=== PATIENT | female | born 1945 | race American Indian/Alaskan Native ===

== ENCOUNTER 2017-09-09 15:30 | Inpatient (IN) | payer BC, OTHER ==
[2017-08-23 09:56] VITALS: BMI 35.9
[2017-09-09] MEDS ORDERED: Albuterol 0.083% Inhal Sol (2.5 mg/3 mL) UD INH PRN (18:17)
[2017-09-09] MEDS: Oxycodone/Acetaminophen 5/325 mg Tab PO PRN (20:29)
[2017-09-09] MEDS ORDERED: Tuberculin 5 Units/0.1 ml Inj ID ONE (22:00)
[2017-09-10] MEDS: Oxycodone/Acetaminophen 5/325 mg Tab PO PRN ×3 (03:42→17:08)
[2017-09-10] MEDS: Multivitamin With Minerals Tab PO SCH (08:59)
[2017-09-10] MEDS: Enoxaparin 40 mg Syringe SC SCH (09:54)
--- NOTE | 2017-09-10 17:26 | CP.PCM.CON ---
History of Present Illness - History of Present Illness History of Present Illness: Dr Bean PMR consultation on Jo Ann Vanegas, born 1945 who has been admitted to [facility] TCU for sub=acute rehabilitation following a right TKR at [facility]. She is having pain that is not allowing for CPM usage. + constipation as well. Had not been on pain medication prior to the surgery Review of Systems - Constitutional Constitutional: absent: Chills - EENT Eyes: absent: Blurred Vision Ears: absent: Decreased Hearing Nose/Mouth/Throat: absent: Nasal Congestion - Cardiovascular Cardiovascular: absent: Chest Pain - Respiratory Respiratory: absent: Dyspnea - Gastrointestinal Gastrointestinal: Constipation. absent: Abdominal Pain - Integumentary Integumentary: absent: Bleeding Lesions - Neurological Neurological: Dizziness (after initial percocet but went away). 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) - CARDIAC Hx Cardiac Disorders: Yes Hx Hypertension: Yes - PULMONARY Hx Respiratory Disorders: Yes Hx Asthma: Yes (sleep apnea) Hx Pneumonia: Yes (" IN THE 1969'S") - NEUROLOGICAL Hx Neurological Disorder: No - HEENT Hx HEENT Problems: No - RENAL Hx Chronic Kidney Disease: No - ENDOCRINE/METABOLIC Hx Endocrine Disorders: No - HEMATOLOGICAL/ONCOLOGICAL Hx Blood Disorders: No - INTEGUMENTARY Hx Dermatological Problems: No - MUSCULOSKELETAL/RHEUMATOLOGICAL Hx Arthritis: Yes Hx Falls: No - GASTROINTESTINAL Hx Gastrointestinal Disorders: No - GENITOURINARY/GYNECOLOGICAL Hx Genitourinary Disorders: No - PSYCHIATRIC Hx Psychophysiologic Disorder: Yes Hx Substance Use: No - SURGICAL HISTORY Hx Surgeries: Yes (breast reduction 1999) Hx Gastric Bypass Surgery: Yes Hx Joint Replacement: Yes ( right TKR) Hx Musculoskeletal Surgery: Yes ("several broken toes when I was younger") Hx Orthopedic Surgery: Yes Hx Tonsillectomy: Yes Other/Comment: HX; BUNIONECTOMY BILATERALLY. HX: BREAST REDUCTION - ANESTHESIA Hx Anesthesia: Yes Hx Anesthesia Reactions: No Hx Malignant Hyperthermia: No Meds Allergies/Adverse Reactions: Allergies Allergy/AdvReac Type Severity Reaction Status Date / Time peanut Allergy Intermediate SHORTNESS Verified 09/09/17 15:59 OF BREATH - Medications Medications: Current Medications Albuterol Sulfate (Albuterol 0.083% Inhal Kaila (2.5 Mg/3 Ml) Ud) 2.5 mg INH RQ6 PRN PRN Reason: Shortness of Breath Docusate Sodium (Colace) 100 mg PO BID [facility] Last Admin: 09/10/17 17:06 Dose: 100 mg Enoxaparin Sodium (Lovenox) 40 mg SC DAILY [facility] PRN Reason: Protocol Last Admin: 09/10/17 09:54 Dose: 40 mg Ferrous Sulfate (Feosol) 325 mg PO DAILY [facility] Last Admin: 09/10/17 09:05 Dose: 325 mg Hydrochlorothiazide (Microzide) 12.5 mg PO 1800 [facility] Last Admin: 09/10/17 17:05 Dose: 12.5 mg Lactulose (Enulose) 20 gm PO Q4 PRN PRN Reason: Constipation Losartan Potassium (Cozaar) 100 mg PO DAILY [facility] Last Admin: 09/10/17 08:59 Dose: 100 mg Multivitamins/Minerals (Therapeutic-M Tab) 1 tab PO DAILY [facility] Last Admin: 09/10/17 08:59 Dose: 1 tab Ondansetron HCl (Zofran Tab) 4 mg PO Q6 PRN PRN Reason: Nausea/Vomiting Oxycodone HCl (Oxycontin Extended Release Tab) 10 mg PO Q12 [facility] Stop: 09/13/17 21:01 Oxycodone/Acetaminophen (Percocet 5/325 Mg Tab) 2 tab PO Q4H PRN PRN Reason: Pain, moderate (4-7) Stop: 09/12/17 18:18 Last Admin: 09/10/17 17:08 Dose: 2 tab Physical Exam - Constitutional Appears: Non-toxic - Head Exam Head Exam: ATRAUMATIC, NORMAL INSPECTION, NORMOCEPHALIC - Eye Exam Eye Exam: EOMI - ENT Exam ENT Exam: Mucous Membranes Moist - Respiratory Exam Respiratory Exam: NORMAL BREATHING PATTERN - Cardiovascular Exam Cardiovascular Exam: REGULAR RHYTHM - GI/Abdominal Exam GI & Abdominal Exam: absent: Guarding - Extremities Exam Extremities exam: Negative for: full ROM (reduced right knee ROM. good ue rom) - Neurological Exam Neurological exam: Alert, CN II-XII Intact, Oriented x3 Results - Vital Signs Recent Vital Signs: Last Vital Signs Temp 98.2 F 09/10/17 15:34 Pulse 93 H 09/10/17 15:34 Resp 20 09/10/17 15:34 BP 111/57 L 09/10/17 15:34 Pulse Ox 100 09/10/17 15:34 Assessment & Plan - Assessment and Plan (Free Text) Assessment: s/p right TKR PT/OT to continue to help increase functional independence Pain: will add oxycontin 10mg bid for a few days and d/c prior to discharge Vascular: no evidence of DVT GI: No evidence of constipation or diarrhea Patient continues to be an excellent TCU rehabilitation candidate and will have continued focused PT, OT and recreational therapy to help facilitate a safe and appropriate d/c plan
[2017-09-10] MEDS ORDERED: oxyCODONE 10 mg ER Tab (oxyCONTIN) PO SCH (21:00)
[2017-09-11] MEDS: Multivitamin With Minerals Tab PO SCH (09:21)
[2017-09-11] MEDS: Enoxaparin 40 mg Syringe SC SCH (09:21)
[2017-09-11] MEDS: Oxycodone/Acetaminophen 5/325 mg Tab PO PRN ×3 (10:55→23:12)
--- NOTE | 2017-09-11 19:12 | HP ---
HISTORY OF PRESENT ILLNESS: This is a 71-year-old female with history of multiple medical problems, was admitted to Transitional Care Unit after having total knee replacement. The patient is still complaining of pain at the site of the surgery, but she denied any shortness of breath or chest pain. REVIEW OF SYSTEMS: The patient has some itching after she takes the pain medications. Other review of systems is negative. ALLERGIES: POSITIVE FOR PEANUT. PAST MEDICAL HISTORY: Osteoarthritis, hypertension, and history of bronchial asthma. SOCIAL HISTORY: No history of smoking, EtOH, or substance abuse. FAMILY HISTORY: Noncontributory. PHYSICAL EXAMINATION: GENERAL: The patient was in bed, not in any cardiopulmonary distress. VITAL SIGNS: Blood pressure was 138/74, temperature 98.1, respiratory rate 20, and pulse 100. HEENT: Pupils equal, reactive to light. Normal-appearing mucosa of the conjunctivae, oropharynx, and nasal membrane mucosa. NECK: Supple. No JVD. No carotid bruit. No lymph node. No thyromegaly. CHEST AND LUNGS: Bilateral symmetrical expansion. Good air exchange. No rales, no rhonchi. CARDIOVASCULAR SYSTEM: PMI not localized. S1, S2. No additional sounds. ABDOMEN: Normoactive bowel sounds. No tenderness. No organomegaly. No masses. EXTREMITIES: No cyanosis, no clubbing, and no edema. 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 No neurological deficit could be appreciated. ASSESSMENT: Status post total knee replacement, hypertension, anemia of acute blood loss, and osteoarthritis. PLAN: Continue current medications and pain management. We will give Benadryl p.r.n. for itching and DVT prophylaxis. Physical therapy and occupational therapy. Familia Strong MD
[2017-09-12] MEDS: Oxycodone/Acetaminophen 5/325 mg Tab PO PRN ×3 (08:37→21:28)
[2017-09-12] MEDS: Multivitamin With Minerals Tab PO SCH (08:39)
--- NOTE | 2017-09-12 10:32 | CP.PCM.PN ---
Subjective - Date & Time of Evaluation Date of Evaluation: 09/12/17 Time of Evaluation: 09:45 - Subjective Subjective: Patient was seen and examined at bedside comfortable. Pain is well controlled. No other complaints. Objective - Vital Signs/Intake and Output Vital Signs (last 24 hours): Temp Pulse Resp BP Pulse Ox 98.4 F 83 20 130/67 99 09/12/17 08:02 09/12/17 08:38 09/12/17 08:02 09/12/17 08:38 09/12/17 08:02 - Medications Medications: Current Medications Albuterol Sulfate (Albuterol 0.083% Inhal Kaila (2.5 Mg/3 Ml) Ud) 2.5 mg INH RQ6 PRN PRN Reason: Shortness of Breath Diphenhydramine HCl (Benadryl) 25 mg PO Q8 PRN PRN Reason: Itching / Pruritus Last Admin: 09/11/17 23:12 Dose: 25 mg Docusate Sodium (Colace) 100 mg PO BID [facility] Last Admin: 09/12/17 08:38 Dose: 100 mg Enoxaparin Sodium (Lovenox) 40 mg SC DAILY [facility] PRN Reason: Protocol Last Admin: 09/11/17 09:21 Dose: 40 mg Ferrous Sulfate (Feosol) 325 mg PO DAILY [facility] Last Admin: 09/12/17 08:38 Dose: 325 mg Hydrochlorothiazide (Microzide) 12.5 mg PO 1800 [facility] Last Admin: 09/11/17 18:15 Dose: 12.5 mg Lactulose (Enulose) 20 gm PO Q4 PRN PRN Reason: Constipation Last Admin: 09/10/17 21:10 Dose: 20 gm Losartan Potassium (Cozaar) 100 mg PO DAILY [facility] Last Admin: 09/12/17 08:38 Dose: 100 mg Multivitamins/Minerals (Therapeutic-M Tab) 1 tab PO DAILY [facility] Last Admin: 09/12/17 08:39 Dose: 1 tab Ondansetron HCl (Zofran Tab) 4 mg PO Q6 PRN PRN Reason: Nausea/Vomiting Oxycodone/Acetaminophen (Percocet 5/325 Mg Tab) 1 tab PO Q4 PRN PRN Reason: Pain, severe (8-10) Stop: 09/14/17 07:59 Last Admin: 09/12/17 08:37 Dose: 1 tab - Extremities Exam Additional comments: R knee: Dressings CDI, Wound CDI with renae and dermabond mild to mod swelling/edema ROM 0-50 deg sensation intact SP/DP/TN motor intact EHL/FHL/TA/G/Q/HS pedal pulses intact comps soft NT b/l Assessment and Plan (1) Status post total right knee replacement Assessment & Plan: POD#3 s/p R TKA doing well -pain control -hinged knee brace unlocked while OOB, may remove when in bed -ice knee and elevate from heel to heart level -compression stocking for edema -PT/OT WBAT -CPM as per order -dressings changed -above d/w Dr. Ricardo in agreement Status: Acute
[2017-09-12] MEDS: Enoxaparin 40 mg Syringe SC SCH (11:36)
--- NOTE | 2017-09-12 18:46 | CP.PCM.PN ---
Subjective - Date & Time of Evaluation Date of Evaluation: 09/12/17 Time of Evaluation: 18:45 - Subjective Subjective: Patient seen in the room, present denies sob/cp right leg feels ok benadryl helping with itching she likes the combination of the percocet and tramadol wants to continue this oxycontin was d/c'd in cpm now had a BM yestderday continue current care Objective - Vital Signs/Intake and Output Vital Signs (last 24 hours): Temp Pulse Resp BP Pulse Ox 98.2 F 87 20 124/72 100 09/12/17 16:36 09/12/17 16:36 09/12/17 16:36 09/12/17 16:36 09/12/17 16:36 - Medications Medications: Current Medications Albuterol Sulfate (Albuterol 0.083% Inhal Kaila (2.5 Mg/3 Ml) Ud) 2.5 mg INH RQ6 PRN PRN Reason: Shortness of Breath Diphenhydramine HCl (Benadryl) 25 mg PO Q8 PRN PRN Reason: Itching / Pruritus Last Admin: 09/11/17 23:12 Dose: 25 mg Docusate Sodium (Colace) 100 mg PO BID [facility] Last Admin: 09/12/17 17:07 Dose: 100 mg Enoxaparin Sodium (Lovenox) 40 mg SC DAILY [facility] PRN Reason: Protocol Last Admin: 09/12/17 11:36 Dose: 40 mg Ferrous Sulfate (Feosol) 325 mg PO DAILY [facility] Last Admin: 09/12/17 08:38 Dose: 325 mg Hydrochlorothiazide (Microzide) 12.5 mg PO 1800 [facility] Last Admin: 09/12/17 17:07 Dose: 12.5 mg Lactulose (Enulose) 20 gm PO Q4 PRN PRN Reason: Constipation Last Admin: 09/10/17 21:10 Dose: 20 gm Losartan Potassium (Cozaar) 100 mg PO DAILY [facility] Last Admin: 09/12/17 08:38 Dose: 100 mg Multivitamins/Minerals (Therapeutic-M Tab) 1 tab PO DAILY [facility] Last Admin: 09/12/17 08:39 Dose: 1 tab Ondansetron HCl (Zofran Tab) 4 mg PO Q6 PRN PRN Reason: Nausea/Vomiting Oxycodone/Acetaminophen (Percocet 5/325 Mg Tab) 1 tab PO Q4 PRN PRN Reason: Pain, severe (8-10) Stop: 09/14/17 07:59 Last Admin: 09/12/17 15:40 Dose: 1 tab
--- NOTE | 2017-09-13 03:52 | PN ---
DATE: 09/12/2017 SUBJECTIVE: The patient is seen today, 09/12/2017. She is not in any cardiopulmonary distress. OBJECTIVE: VITAL SIGNS: Blood pressure is 130/67, temperature 98.2, respiratory rate 20, and pulse 83. HEENT: Pupils equal and reactive to light. Normal-appearing mucosa of the conjunctivae, oropharyngeal and nasal membrane mucosa. NECK: Supple. No JVD. No carotid bruit. No lymph node. No thyromegaly. CHEST AND LUNGS: Bilateral symmetrical expansion. Good air exchange. No rales, no rhonchi. CARDIOVASCULAR SYSTEM: PMI not localized. S1, S2. No additional sounds. ABDOMEN: Normoactive bowel sounds. No tenderness. No organomegaly. No masses. EXTREMITIES: No cyanosis, no clubbing, no edema. 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 No neurological deficit could be appreciated. ASSESSMENT: Right total knee replacement, hypertension, anemia of acute blood loss. PLAN: Continue current medications including pain medicine, physical therapy, occupational therapy. Mandy MD Tae
[2017-09-13] MEDS: Oxycodone/Acetaminophen 5/325 mg Tab PO PRN (05:35)
[2017-09-13 06:44] LABS: HEMOGLOBIN 7.7 g/dL (12.0-16.0); MEAN CORPUSCULAR HEMOGLOBIN 32.2 pg (27.0-31.0); MEAN CORPUSCULAR HGB CONC 34.2 g/dL (33.0-37.0); RBC 2.41 Mil/uL (3.80-5.20); RED CELL DISTRIBUTION WIDTH 14.4 % (11.5-14.5); WHITE BLOOD COUNT 7.2 K/uL (4.8-10.8)
[2017-09-13 06:58] LABS: ALB/GLOB RATIO 0.9 (1.0-2.1); ALBUMIN 3.1 g/dL (3.5-5.0); ALT/SGPT 41 U/L (9-52); AST/SGOT 21 U/L (14-36); BLOOD UREA NITROGEN 12 mg/dl (7-17); CALCIUM 8.3 mg/dL (8.4-10.2); GFR AFRICAN-AMERICAN > 60; GFR NON-AFRICAN AMERICAN > 60
[2017-09-13] MEDS: Enoxaparin 40 mg Syringe SC SCH (08:47)
[2017-09-13] MEDS: Multivitamin With Minerals Tab PO SCH (08:48)
--- NOTE | 2017-09-13 14:02 | CP.PCM.PN ---
Subjective - Date & Time of Evaluation Date of Evaluation: 09/13/17 Time of Evaluation: 14:01 - Subjective Subjective: Seen in therapy doing better today goal for will be to stop percocet and get to Tylenol #3 continue current care Objective - Vital Signs/Intake and Output Vital Signs (last 24 hours): Temp Pulse Resp BP Pulse Ox 98.2 F 77 20 121/73 99 09/13/17 07:58 09/13/17 08:48 09/13/17 07:58 09/13/17 08:48 09/13/17 07:58 - Medications Medications: Current Medications Albuterol Sulfate (Albuterol 0.083% Inhal Kaila (2.5 Mg/3 Ml) Ud) 2.5 mg INH RQ6 PRN PRN Reason: Shortness of Breath Diphenhydramine HCl (Benadryl) 25 mg PO Q8 PRN PRN Reason: Itching / Pruritus Last Admin: 09/12/17 22:50 Dose: 25 mg Docusate Sodium (Colace) 100 mg PO BID [facility] Last Admin: 09/13/17 08:47 Dose: 100 mg Ferrous Sulfate (Feosol) 325 mg PO DAILY [facility] Last Admin: 09/12/17 08:38 Dose: 325 mg Hydrochlorothiazide (Microzide) 12.5 mg PO 1800 [facility] Last Admin: 09/12/17 17:07 Dose: 12.5 mg Iron Sucrose 100 mg/ Sodium (Chloride) 105 mls @ 105 mls/hr IVPB DAILY@1700 [facility] Lactulose (Enulose) 20 gm PO Q4 PRN PRN Reason: Constipation Last Admin: 09/10/17 21:10 Dose: 20 gm Losartan Potassium (Cozaar) 100 mg PO DAILY [facility] Last Admin: 09/13/17 08:48 Dose: 100 mg Multivitamins/Minerals (Therapeutic-M Tab) 1 tab PO DAILY [facility] Last Admin: 09/13/17 08:48 Dose: 1 tab Ondansetron HCl (Zofran Tab) 4 mg PO Q6 PRN PRN Reason: Nausea/Vomiting Oxycodone/Acetaminophen (Percocet 5/325 Mg Tab) 1 tab PO Q4 PRN PRN Reason: Pain, severe (8-10) Stop: 09/14/17 07:59 Last Admin: 09/13/17 05:35 Dose: 1 tab Tramadol HCl (Ultram) 50 mg PO Q6 PRN PRN Reason: pain -12/21 Last Admin: 09/12/17 22:49 Dose: 50 mg - Labs Labs: 09/13/17 06:00 09/13/17 06:00
[2017-09-13 17:47] VITALS: PULSE 83
[2017-09-13 18:01] LABS: BASO # 0.1 K/uL (0.0-0.2); BASO % 0.9 % (0.0-2.0); EOS # 0.1 K/uL (0.0-0.7); EOS % 1.3 % (0.0-4.0); HEMOGLOBIN 8.2 g/dL (12.0-16.0); LYMPH # 1.8 K/uL (1.0-4.3); LYMPH % 18.6 % (20.0-40.0); MEAN CELL VOLUME 95.3 fl (81.0-99.0); MEAN CORPUSCULAR HGB CONC 33.5 g/dL (33.0-37.0); MEAN PLATELET VOLUME 8.5 fl (7.2-11.7); MONO # 0.9 K/uL (0.0-0.8); MONO % 9.5 % (0.0-10.0); NEUT # 6.6 K/uL (1.8-7.0); NEUT % 69.7 % (50.0-75.0); RBC 2.56 Mil/uL (3.80-5.20); RED CELL DISTRIBUTION WIDTH 14.3 % (11.5-14.5); WHITE BLOOD COUNT 9.5 K/uL (4.8-10.8)
[2017-09-13 18:09] LABS: ALBUMIN 3.4 g/dL (3.5-5.0); ALT/SGPT 31 U/L (9-52); AST/SGOT 23 U/L (14-36); BLOOD UREA NITROGEN 13 mg/dl (7-17); CALCIUM 8.6 mg/dL (8.4-10.2); GFR AFRICAN-AMERICAN > 60; GFR NON-AFRICAN AMERICAN > 60
[2017-09-13 18:10] LABS: INR 1.1 (0.9-1.2); PARTIAL THROMBOPLASTIN TIME 32.9 Seconds (25.6-37.1); PROTHROMBIN TIME 12.4 Seconds (9.8-13.1)
--- NOTE | 2017-09-13 18:18 | PCM.RRT ---
<Lenore Willoughby - Last Filed: 09/13/17 18:29> [employer]ESSIONAL Nurse Assessment - Situation [employer] PROFESSIONAL Responder Arrival Time: 17:30 Location: Bed 705 TCU [employer] Reason for Call: Chest Pain [employer] PROFESSIONAL Called By: RN IShwetaReason for HEAD TENNIS PROFESSIONAL - A) Acute Change in Patient: Subjective: HEAD TENNIS PROFESSIONAL was called for a 71 y/o F h/o HTN , s/p right TKR POD #4 complaining of sudden onset of middle pressure chest pain, and difficulty breathing. At the time of arrival patient was found awake, alert, and oriented x 3. VS on monitor : BP: 138/110, HR: 98, RR: 20, 99 % oxygen sat on 3 LPM via NC. Denies dizziness , blurry vision, N/V, no diaphoresis. - Neurological Status (Select all that apply): Alert, Responsive, Oriented, Verbal, Follows Commands. absent: Disoriented, Confused - Respiratory Oxygen Delivery Method: Nasal Cannula @L/min (3) - Constitutional Appears: Other (moderate distress because symptoms). absent: Agitated, Confused - Head Head Exam: ATRAUMATIC, NORMOCEPHALIC - Eyes Eye Exam: Normal appearance, PERRL. absent: Conjunctival injection - Respiratory Exam Respiratory Exam: Clear to Ausculation Bilateral, NORMAL BREATHING PATTERN. absent: Decreased Breath Sounds, Rales, Rhonchi, Wheezes - Cardiovascular Exam Cardiovascular Exam: Tachycardia, REGULAR RHYTHM, +S1, +S2 - GI/Abdominal Exam GI & Abdominal Exam: Soft, Normal Bowel Sounds. absent: Distended, Rigid, Tenderness - Neurological Exam Neurological Exam: Alert, Awake, Oriented x3 - Extremities Exam Extremities Exam: absent: Calf Tenderness, Pedal Edema Plan - Assessment of Findings&Treatment Plan 71 y/o F h/o HTN, s/p surgery POD #4 c/o chest pain and SOB. R/O ACS vs PE -EKG -CBC, CMP, troponin, Pro-BNP, coag panel -Chest CT angio normal GFR in last BMP -LE duplex venous US B/L -duoneb neb once -Transfer to radiology derpt for stat CT angio -f/iu labs and images results case discussed with HEAD [employer] leader Dr. Montanez -Dr. Strong, PCP, was called and informed of HEAD TENNIS PROFESSIONAL, and recommends to transfer patient to ER for further evaluation. <Sintia Montanez - Last Filed: 09/15/17 08:23> [employer] Nurse Assessment - Vital Signs Vital Signs: Rapid Response Vital Sign Blood Pressure 138/110 Pulse Rate 99 Respiratory Rate 22 Temperature 101.8 F Oxygen Saturation 99 - Vital Signs at end of [employer] PROFESSIONAL Vital Signs at end of HEAD [employer]IS PROFESSIONAL: Rapid Response End Vital Sign Blood Pressure 113/99 Pulse Rate 118 Respiratory Rate 25 O2 Sat by Pulse Oximetry 99 Attending/Attestation - Attestation I have personally seen and examined this patient.: Yes I have fully participated in the care of the patient.: Yes I have reviewed all pertinent clinical information, including history, physical exam and plan: Yes Notes (Text): 09/15/17 08:23 Seen, examined, discussed with residents Drs. Willoughby and Stevenson. Agree with findings and plan as above.
[2017-09-13 18:20] LABS: B-TYPE NATRIURETIC PEPTIDE 288 pg/ml (0-900)
[2017-09-13 20:20] VITALS: BP 138/110; RESP 25; TEMP 101.8; O2SAT 90
[2017-09-14] MEDS ORDERED: Enoxaparin 40 mg Syringe SC SCH (09:00)
--- NOTE | 2017-09-15 08:39 | CARD ---
APPROVED REPORT EKG Measurement Heart [id number] NM [id number] [id number] <Conclusion> Normal sinus rhythm Normal ECG
--- NOTE | 2017-09-16 12:18 | DS ---
REASON FOR ADMISSION: This is a 71-year-old -[place] female who was admitted to transitional care unit after right total knee replacement. COURSE OF HOSPITALIZATION: The patient was admitted to transitional care unit at [facility]. The patient was started on physical therapy. The patient was kept on her medication that came in with including Lovenox 40 mg subcutaneously daily. Further review of systems is negative. ALLERGIES: NO KNOWN ALLERGY. MEDICATIONS: Reviewed as per MAR. The patient developed acute shortness of breath and she had an COMMUNITY RELATIONS OFFICER done in the floor. The patient was transferred to the emergency room where she was found to have pulmonary embolism, and the patient was admitted again to Acute Care. FINAL DIAGNOSES: Right total knee replacement, hypertension, anemia of acute blood loss. [facility] MD Tae
== END 2017-09-13 22:35 | disposition short-term general hospital (02) | DRG 560 ==
LOC: H.TCU 17:39
PROVIDERS: ADMIT Internal Medicine; ATTEND Internal Medicine
PROC: F07Z9FZ Gait Training/Functional Ambulation Treatment using Assistive, Adaptive, Supportive or Protective Equipment (ICD-10-PCS; principal; 2017-09-09)
PROC: F08Z4FZ Home Management Treatment using Assistive, Adaptive, Supportive or Protective Equipment (ICD-10-PCS; 2017-09-09)
PROC: F07L6FZ Therapeutic Exercise Treatment of Musculoskeletal System - Lower Back / Lower Extremity using Assistive, Adaptive, Supportive or Protective Equipment (ICD-10-PCS; 2017-09-10)
DX: Z47.1 Aftercare following joint replacement surgery (principal); D62 Acute posthemorrhagic anemia; Z96.651 Presence of right artificial knee joint; M17.11 Unilateral primary osteoarthritis, right knee; R07.9 Chest pain, unspecified; I10 Essential (primary) hypertension; K59.00 Constipation, unspecified; J45.909 Unspecified asthma, uncomplicated; Z87.01 Personal history of pneumonia (recurrent); Z98.84 Bariatric surgery status; Z91.010 Allergy to peanuts

== ENCOUNTER 2017-09-13 17:59 | Inpatient (IN) | payer BC, MEDICARE ==
[2017-09-13 17:59] VITALS: BMI 35.9
[2017-09-13] MEDS ORDERED: Albuterol-Ipratrop 3 mg / 0.5 (3 ml) UD INH STA (18:18)
[2017-09-13] MEDS ORDERED: DiphenhydrAMINE 50 mg/ml Inj IVP STA (18:19)
--- NOTE | 2017-09-13 18:21 | ED PDOC ---
HPI: General Adult Time Seen by Provider: 09/13/17 18:05 Chief Complaint (Nursing): Chest Pain Chief Complaint (Provider): Chest tightness History Per: Patient History/Exam Limitations: no limitations Onset/Duration Of Symptoms: Hrs (x12) Current Symptoms Are (Timing): Still Present Additional Complaint(s): 71 year old female presents to the ED complaining of chest tightness and SOB. Patient reports she ate a little bit of a tuna fish sandwich and immediately felt something was in her throat. She felt chest tightness, chest pressure, and SOB. Patient is allergic to peanuts. Denies coughing and difficulty swallowing. PMD: [facility] Past Medical History Reviewed: Historical Data, Nursing Documentation, Vital Signs Vital Signs: Last Vital Signs Temp 97.8 F 09/15/17 12:53 Pulse 77 09/15/17 12:53 Resp 20 09/15/17 12:53 BP 122/67 09/15/17 12:53 Pulse Ox 100 09/15/17 12:53 - Medical History PMH: Arthritis, Asthma (sleep apnea), Colonic Polyps, Depression, Fractures (HX : TOES), HTN, Pneumonia (" IN THE 1969'S") Denies: Chronic Kidney Disease - Surgical History Surgical History: Endoscopy, Tonsillectomy Other surgeries: Right TKR on 09/07 - Family History Family History: States: Unknown Family Hx - Home Medications Home Medications: Ambulatory Orders Medication Instructions Recorded Multivitamin [Multivitamins] 1 each PO DAILY 08/23/17 Albuterol 0.083% [Albuterol 0.083% 2.5 mg INH RQ6 PRN neb 09/09/17 Inhal Kaila (2.5 mg/3 ml) UD] Enoxaparin [Lovenox] 40 mg SC DAILY syr 09/09/17 Ferrous Sulfate [Feosol] 325 mg PO DAILY tab 09/09/17 HYDROmorphone [Dilaudid] 1 mg IVP Q4H PRN ml 09/09/17 Losartan [Cozaar] 100 mg PO DAILY tab 09/09/17 Ondansetron [Zofran Tab] 4 mg PO Q6 PRN tab 09/09/17 hydroCHLOROthiazide [Microzide] 12.5 mg PO 1800 cap 09/09/17 oxyCODONE/Acetaminophen [Percocet 2 tab PO Q4H PRN tab 09/09/17 5/325 mg Tab] - Allergies Allergies/Adverse Reactions: Allergies Allergy/AdvReac Type Severity Reaction Status Date / Time peanut Allergy Intermediate SHORTNESS Verified 09/13/17 18:06 OF BREATH Review of Systems ROS Statement: Except As Marked, All Systems Reviewed And Found Negative ENT: Negative for: Other (difficulty swallowing) Cardiovascular: Positive for: Other (chest tightness and pressure) Respiratory: Positive for: Shortness of Breath. Negative for: Cough Physical Exam - Reviewed Nursing Documentation Reviewed: Yes Vital Signs Reviewed: Yes - Physical Exam Appears: Positive for: Non-toxic, No Acute Distress Head Exam: Positive for: ATRAUMATIC, NORMOCEPHALIC Skin: Positive for: Normal Color, Warm, Dry Eye Exam: Positive for: Normal appearance ENT: Positive for: Pharynx Is (clear), Other (uvula is midline and no drooling) Neck: Positive for: Normal, Painless ROM Cardiovascular/Chest: Positive for: Regular Rate, Rhythm. Negative for: Murmur Respiratory: Positive for: Normal Breath Sounds. Negative for: Wheezing, Respiratory Distress Extremity: Positive for: Normal ROM Neurologic/Psych: Positive for: Alert, Oriented. Negative for: Motor/Sensory Deficits - Laboratory Results Result Diagrams: 09/15/17 09:03 09/15/17 09:03 - ECG O2 Sat by Pulse Oximetry: 100 (RA) Pulse Ox Interpretation: Normal Medical Decision Making Medical Decision Making: Initial Impression: Chest tightness and SOB. Differentials include but not limited to allergic reaction, PE, asthma exacerbation Initial Plan: ECG CMP Troponin CBC PTT Prothrombin Chest X-ray Diphenhydramine 50mg IV Albuterol 3mL INH Pepcid 20mg IV Famotidine 20mg in 50mL IV Peak flow Scribe Attestation: Documented by Konstantin Weston acting as a scribe for Nicolle Torres MD. Provider Scribe Attestation: All medical record entries made by the Scribe were at my direction and personally dictated by me. I have reviewed the chart and agree that the record accurately reflects my personal performance of the history, physical exam, medical decision making, and the department course for this patient. I have also personally directed, reviewed, and agree with the discharge instructions and disposition. Disposition - Clinical Impression Clinical Impression: Pulmonary embolism - Disposition Disposition Time: 19:00 Condition: STABLE Patient Signed Over To: Mark Elias
[2017-09-13] MEDS ORDERED: DiphenhydrAMINE 50 mg/ml Inj ONE (18:45)
[2017-09-13] MEDS ORDERED: Famotidine 20mg/50ml 0 MG/0 ML BAG IVPB ONE (18:46)
[2017-09-13] MEDS ORDERED: Albuterol-Ipratrop 3 mg / 0.5 (3 ml) UD ONE (18:46)
[2017-09-13] MEDS: Famotidine 20mg/50ml 20 MG/50 ML BAG IVPB ONE ×2 (18:51→22:31)
[2017-09-13 19:10] LABS: BASO % 0.5 % (0.0-2.0); EOS # 0.1 K/uL (0.0-0.7); EOS % 1.4 % (0.0-4.0); HEMOGLOBIN 7.8 g/dL (12.0-16.0); LYMPH # 1.7 K/uL (1.0-4.3); LYMPH % 21.3 % (20.0-40.0); MEAN CORPUSCULAR HEMOGLOBIN 31.6 pg (27.0-31.0); MEAN CORPUSCULAR HGB CONC 33.3 g/dL (33.0-37.0); MEAN PLATELET VOLUME 8.4 fl (7.2-11.7); MONO # 0.8 K/uL (0.0-0.8); MONO % 9.2 % (0.0-10.0); NEUT # 5.6 K/uL (1.8-7.0); NEUT % 67.6 % (50.0-75.0); RBC 2.48 Mil/uL (3.80-5.20); RED CELL DISTRIBUTION WIDTH 14.3 % (11.5-14.5); WHITE BLOOD COUNT 8.2 K/uL (4.8-10.8)
[2017-09-13 19:19] LABS: ALBUMIN 3.2 g/dL (3.5-5.0); ALT/SGPT 31 U/L (9-52); AST/SGOT 23 U/L (14-36); BLOOD UREA NITROGEN 14 mg/dl (7-17); CALCIUM 8.5 mg/dL (8.4-10.2); GFR AFRICAN-AMERICAN > 60; GFR NON-AFRICAN AMERICAN > 60
--- NOTE | 2017-09-13 19:20 | ED PDOC ---
- Laboratory Results Result Diagrams: 09/13/17 19:00 09/13/17 19:00 - ECG O2 Sat by Pulse Oximetry: 100 (RA) Medical Decision Making Medical Decision Makin:00 Patient endorsed to me from Dr. Torres. Pending ED workup. 20:[address] FINDINGS: Pulmonary arteries: There is a central filling defect within a segmental branch of the right upper lobe pulmonary artery and within a segmental branch of the left lower lobe pulmonary artery, consistent with small peripheral acute pulmonary emboli bilaterally. There is mild prominence of the main pulmonary artery suspicious for mild pulmonary arterial hypertension. Aorta: There are atherosclerotic aortic calcifications. Lungs: There is minimal bibasilar atelectatic change or scarring. There is minimal bibasilar atelectatic change or scarring. Pleural space: Normal. No pneumothorax. No pleural effusion. Heart: No specific signs of right ventricular strain. Bones/joints: There is moderate thoracic kyphosis. There is diffuse osteopenia and there are degenerative changes of the spine. Soft tissues: Unremarkable. Lymph nodes: Unremarkable. No enlarged lymph nodes. Kidneys and ureters: There is a 1.7 cm left renal cyst. Stomach and bowel: There are postoperative changes of gastric bypass surgery. IMPRESSION: 1. There is a central filling defect within a segmental branch of the right upper lobe pulmonary artery and within a segmental branch of the left lower lobe pulmonary artery, consistent with small peripheral acute pulmonary emboli bilaterally. 2. There is mild prominence of the main pulmonary artery suspicious for mild pulmonary arterial hypertension. 3. No specific signs of right ventricular strain. 21:11 Dr. Strong pts pcp called 21:31 Dr. Strong called 21:[address] Strong who recommended giving lovenox full dose but said to check with Dr. Ricardo, orthopedist who performed the knee replacement. Spoke with Dr. Ricardo who said it is fine. discussed results w pt and family at bedside Scribe Attestation: Documented by Konstantin Weston acting as a scribe for Mark Elias MD. Provider Scribe Attestation: All medical record entries made by the Scribe were at my direction and personally dictated by me. I have reviewed the chart and agree that the record accurately reflects my personal performance of the history, physical exam, medical decision making, and the department course for this patient. I have also personally directed, reviewed, and agree with the discharge instructions and disposition. Disposition Counseled Patient/Family Regarding: Studies Performed, Diagnosis - Clinical Impression Clinical Impression: Pulmonary embolism - POA Present On Arrival: None - Disposition Disposition: Admitted as In-Patient Disposition Time: 21:50 Condition: STABLE
[2017-09-13 19:24] LABS: INR 1.1 (0.9-1.2); PARTIAL THROMBOPLASTIN TIME 33.6 Seconds (25.6-37.1); PROTHROMBIN TIME 12.7 Seconds (9.8-13.1)
[2017-09-13] MEDS ORDERED: Sodium Chloride 0.9% 100 ML ONE (19:24)
[2017-09-13] MEDS ORDERED: Iodixanol 320 MG/ML 100 ML BOTTLE IV ONE (19:24)
[2017-09-13] MEDS ORDERED: Albuterol 0.083% Inhal Sol (2.5 mg/3 mL) UD INH ONE (19:56)
[2017-09-13] MEDS ORDERED: Albuterol 0.083% Inhal Sol (2.5 mg/3 mL) UD ONE (20:20)
[2017-09-13] MEDS ORDERED: Oxycodone/Acetaminophen 5/325 mg Tab PO ONE (20:36)
[2017-09-13] MEDS ORDERED: Enoxaparin 100 mg Syringe SC STA (21:46)
[2017-09-13] MEDS ORDERED: Famotidine 20mg/50ml 20 MG/50 ML BAG IVPB ONE (22:28)
[2017-09-14] MEDS ORDERED: HYDROmorphone 1 mg/ml ISec IVP PRN (03:18)
[2017-09-14] MEDS: Oxycodone/Acetaminophen 5/325 mg Tab PO PRN ×3 (08:08→23:46)
[2017-09-14] MEDS: Multivitamin With Minerals Tab PO SCH (08:12)
--- NOTE | 2017-09-14 08:17 | RAD ---
HISTORY: SOB COMPARISON: No prior. FINDINGS: LUNGS: No active pulmonary disease. PLEURA: No significant pleural effusion identified, no pneumothorax apparent. CARDIOVASCULAR: Normal. OSSEOUS STRUCTURES: No significant abnormalities. Mild degenerative changes. VISUALIZED UPPER ABDOMEN: Normal. Suboptimal evaluation of the upper abdomen. Surgical clips in the left upper quadrant abdomen. OTHER FINDINGS: None. IMPRESSION: Clear lungs. Please note that chest radiographs have low sensitivity for small pulmonary nodules. If indicated, chest CT should be obtained.
[2017-09-14] MEDS ORDERED: Enoxaparin 100 mg Syringe SC SCH (09:00)
--- NOTE | 2017-09-14 09:24 | CT ---
PROCEDURE: CT Chest with contrast (Pulmonary Angiogram) HISTORY: SOB COMPARISON: None available. TECHNIQUE: Axial computed tomography images were obtained of the chest in the pulmonary arterial phase of enhancement. Coronal and sagittal reformatted images were created and reviewed. This CT exam was performed using one or more of the following dose reduction techniques: Automated exposure control, adjustment of the mA and/or kV according to patient size, and/or use of iterative reconstruction technique. Intravenous contrast dose: 90 mL of Visipaque 320 Radiation dose: Total exam DLP = 405.80 mGy-cm. FINDINGS: PULMONARY ARTERIES: Small filling defects noted in the segmental artery of the right upper lobe (series 4, image 87 and the left lower lobe (series 4, image 100. Pulmonary artery is slightly enlarged measuring 2.9 centimeters. AORTA: No acute findings. No thoracic aortic aneurysm. Scattered atherosclerotic calcification throughout the abdominal aorta and its visualized branches. LUNGS: Unremarkable. No nodule, mass or pulmonary consolidation. Atelectatic changes in the lung bases. PLEURAL SPACES: Unremarkable. No effusion or pneuomothorax. HEART: No cardiomegaly. Small pericardial effusion. LYMPH NODES: No lymphadenopathy. BONES, CHEST WALL: Unremarkable. No fracture or destructive lesion OTHER FINDINGS: Heterogeneity of the right thyroid gland. Status post gastric bypass surgery. Possible cyst in the left kidney. Follow-up with ultrasound recommended. Diverticulosis in the visualized colon without evidence of diverticulitis. Degenerative changes of the thoracic spine. IMPRESSION: Small pulmonary emboli in the right upper and left lower lobes as described above. Heterogeneity of the right thyroid gland. Dedicated ultrasound recommended. Findings as above. Please note that this report is discordant with preliminary report. .
--- NOTE | 2017-09-14 14:30 | US ---
PROCEDURE: Bilateral lower extremity venous duplex Doppler. HISTORY: PE COMPARISON: None available. TECHNIQUE: Bilateral common femoral, superficial femoral, popliteal and posterior tibial veins were evaluated. Flow was assessed with color Doppler, compressibility, assessment of phasic flow and augmentation response. FINDINGS: COMMON FEMORAL VEIN: Right CFV: Unremarkable. Left CFV: Unremarkable. SUPERFICIAL FEMORAL VEIN: Right SFV: Unremarkable. Left SFV: Unremarkable. POPLITEAL VEIN: Right Popliteal: Unremarkable. Left Popliteal: Unremarkable. POSTERIOR TIBIAL VEIN: Right PTV: Unremarkable. Left PTV: Unremarkable. OTHER FINDINGS: None. IMPRESSION: No evidence of deep venous thrombosis.
--- NOTE | 2017-09-14 21:42 | HP ---
HISTORY OF PRESENT ILLNESS: The patient is a 71-year-old -[place] female, who was in transitional care unit for deconditioning physical therapy after right total knee replacement. The patient was on Lovenox 40 mg daily for DVT prophylaxis. The patient suddenly developed shortness of breath. WOOD BORING MACHINE OPERATOR was called and the patient was transferred to emergency room for further management. The patient had a CT angiogram of the chest done that showed small pulmonary emboli in the right upper and left lower lobes. The patient was started on subcutaneous Lovenox therapeutic dose and she was admitted for further management. The patient's shortness of breath has improved but still feel generalized weakness. Other review of system is negative. ALLERGIES: POSITIVE FOR PEANUTS. PAST MEDICAL HISTORY: Hypertension, osteoarthritis, history of bronchial asthma. SOCIAL HISTORY: No history of smoking, EtOH or substance abuse. FAMILY HISTORY: Noncontributory. PHYSICAL EXAMINATION: GENERAL: The patient was not in any cardiopulmonary distress at the time of this examination. VITAL SIGNS: Blood pressure 124/64, temperature 97.5, respiratory rate 20, and pulse 62. HEENT: Pupils equal and reactive to light. Normal-appearing mucosa of the conjunctivae, oropharyngeal, and nasal membrane mucosa. NECK: Supple. No JVD. No carotid bruit. No lymph node. No thyromegaly. CHEST AND LUNGS: Bilateral symmetrical expansion. Good air exchange. No rales, no rhonchi. CARDIOVASCULAR SYSTEM: PMI not localized. S1, S2. No additional sounds. ABDOMEN: Normoactive bowel sounds. No tenderness. No organomegaly. No masses. EXTREMITIES: No cyanosis, no clubbing, no edema. Right knee is surgically dressed. HYPERBARIC TECHNICIAN: Alert, awake, oriented x3. No neurological deficit could be appreciated. ASSESSMENT: 1. Pulmonary embolism. 2. Anemia of acute blood loss. 3. Hypertension. 4. History of bronchial asthma. 5. Status post right total knee replacement. PLAN: We will do venous Doppler of both lower extremities. Continue Lovenox 1 mg/kg every 12 hours. Continue current medications. Familia Strong MD
[2017-09-14] MEDS: Enoxaparin 100 mg Syringe SC SCH (22:26)
--- NOTE | 2017-09-15 08:38 | CARD ---
APPROVED REPORT EKG Measurement Heart [id number] IL [id number] <Conclusion> Normal sinus rhythm Normal ECG
[2017-09-15] MEDS: Oxycodone/Acetaminophen 5/325 mg Tab PO PRN (09:03)
[2017-09-15] MEDS: Multivitamin With Minerals Tab PO SCH (09:05)
[2017-09-15] MEDS: Enoxaparin 100 mg Syringe SC SCH ×2 (09:08→21:41)
[2017-09-15 09:12] LABS: HEMOGLOBIN 7.8 g/dL (12.0-16.0); MEAN CELL VOLUME 94.5 fl (81.0-99.0); MEAN CORPUSCULAR HEMOGLOBIN 32.7 pg (27.0-31.0); MEAN CORPUSCULAR HGB CONC 34.5 g/dL (33.0-37.0); RBC 2.38 Mil/uL (3.80-5.20); RED CELL DISTRIBUTION WIDTH 14.1 % (11.5-14.5); WHITE BLOOD COUNT 6.4 K/uL (4.8-10.8)
[2017-09-15 09:24] LABS: IRON 31 ug/dL (37-170)
[2017-09-15 09:34] LABS: % IRON SATURATION 12 % (20-55); TOTAL IRON BINDING CAPACITY 257 ug/dL (250-450)
[2017-09-15 09:34] LABS: BLOOD UREA NITROGEN 10 mg/dl (7-17); CALCIUM 8.5 mg/dL (8.4-10.2); GFR AFRICAN-AMERICAN > 60; GFR NON-AFRICAN AMERICAN > 60
[2017-09-15] MEDS: Albuterol 0.083% Inhal Sol (2.5 mg/3 mL) UD INH PRN ×2 (11:35→19:51)
[2017-09-15] MEDS: Acetylcysteine 20% Inhal Soln (4ml) INH SCH ×2 (11:35→19:51)
--- NOTE | 2017-09-15 13:55 | CP.PCM.PN ---
Subjective - Date & Time of Evaluation Date of Evaluation: 09/15/17 Time of Evaluation: 11:00 - Subjective Subjective: Patient seen and examined at bedside. C/o SOB related to B/l PE. Pain well controlled at right knee. No new complaints. Objective - Vital Signs/Intake and Output Vital Signs (last 24 hours): Temp Pulse Resp BP Pulse Ox 97.8 F 77 20 122/67 100 09/15/17 12:53 09/15/17 12:53 09/15/17 12:53 09/15/17 12:53 09/15/17 12:53 - Medications Medications: Current Medications Acetylcysteine (Acetylcysteine 20%) 2 ml INH RBID MARIA C Last Admin: 09/15/17 11:35 Dose: 2 ml Albuterol Sulfate (Albuterol 0.083% Inhal Kaila (2.5 Mg/3 Ml) Ud) 2.5 mg INH RQ6 PRN PRN Reason: Shortness of Breath Last Admin: 09/15/17 11:35 Dose: 2.5 mg Enoxaparin Sodium (Lovenox) 90 mg SC Q12 MARIA C PRN Reason: Protocol Last Admin: 09/15/17 09:08 Dose: 90 mg Hydrochlorothiazide (Microzide) 12.5 mg PO 1800 [facility] Last Admin: 09/14/17 19:03 Dose: Not Given Hydromorphone HCl (Dilaudid) 1 mg IVP Q4H PRN PRN Reason: Pain, severe (8-10) Iron Sucrose 100 mg/ Sodium (Chloride) 105 mls @ 105 mls/hr IVPB DAILY [facility] Lactulose (Enulose) 20 gm PO Q4H PRN PRN Reason: Constipation Last Admin: 09/15/17 05:50 Dose: 20 gm Losartan Potassium (Cozaar) 100 mg PO DAILY [facility] Last Admin: 09/15/17 09:09 Dose: 100 mg Multivitamins/Minerals (Therapeutic-M Tab) 1 tab PO DAILY [facility] Last Admin: 09/15/17 09:05 Dose: 1 tab Ondansetron HCl (Zofran Tab) 4 mg PO Q6 PRN PRN Reason: Nausea/Vomiting Last Admin: 09/15/17 10:19 Dose: 4 mg Oxycodone/Acetaminophen (Percocet 5/325 Mg Tab) 2 tab PO Q4H PRN PRN Reason: Pain, moderate (4-7) Stop: 09/17/17 03:19 Last Admin: 09/15/17 09:03 Dose: 2 tab - Labs Labs: 09/15/17 09:03 09/15/17 09:03 PT 12.7 Seconds (9.8-13.1) 09/13/17 19:00 INR 1.1 (0.9-1.2) 09/13/17 19:00 APTT 33.6 Seconds (25.6-37.1) 09/13/17 19:00 - Extremities Exam Additional comments: L knee: Dressing CDI mild swelling sensation intact SP/DP/TN motor intact EHL/FHL/TA/G pedal pulses intact comps soft NT Assessment and Plan (1) Status post total right knee replacement Assessment & Plan: POD#8 s/p L TKA, acute B/L PE -B/L LE ultrasound negative for DVT -care as per medicine -strict CPM as per order, keep knee in extension with pillow under heel. Both to prevent stiffness. -PT/OT WBAT -stable from orthopedic standpoint -above d/w Dr. Ricardo in agreement Status: Acute
--- NOTE | 2017-09-15 14:53 | PQF ---
PROVIDER RESPONSE TEXT: Acute pulmonary embolism. REVIEWER QUERY TEXT: Pulmonary Embolism Pulmonary embolism (PE) is documented in the Medical Record. Please specify type and or etiology: if known Such as: -- Acute pulmonary embolism -- Septic -- Iatrogenic: i.e complication of surgery, or complication of a therapeutic injection etc. -- Saddle -- Other, please specify ---OR: Unable to determine 09/14: Angio Chest PE: Impression: Small pulmonary emboli in the right upper and left lower lobes as described above. H and P; 71-year-old , who was in transitional care unit for deconditioning physical therapy after ri ght total knee replacement. The patient was on Lovenox 40 mg daily for DVT prophylaxis. Assessment : 1. Pulmonary embolism. 2. Anemia of acute blood loss. 3. Hypertension. 4. History of bro nchial asthma. 5. Status post right total knee replacement PLAN: We will do venous Doppler of both lower extremities. Continue Lovenox 1 mg/kg every 12 hours . Continue current medications. The patient's Clinical Indicators include: xxxx Query created by: Esha Munson on 09/15/2017 8:45 AM PROVIDER RESPONSE TEXT: Mild intermittent REVIEWER QUERY TEXT: Asthma Specificity and Type 2queries: 1. Asthma is documented in the Medical Record. Please specify the type: Such as: -- Mild intermittent -- Mild persistent -- Moderate persistent -- Severe persistent -- Other, please specify 2.Please specify the severity of Asthma: i.e: if this is associated with exacerbation or status asthm aticus or stable ER MD: Respiratory: Positive for: Shortness of Breath Initial Impression: Differentials include but not limited to allergic reaction, PE, asthma exacerbat ion Clinical Impression: Pulmonary embolism H and P: he patient was started on subcutaneous Lovenox therapeutic dose and she was admitted for fu rther management. The patient's shortness of breath has improved ASSESSMENT: 1. Pulmonary embolism. 2. Anemia of acute blood loss. 3. Hypertension. 4. History of bronchial asthma. 5. Status post right total knee replacement. 09/13:ER: Albuterol Inhal Kaila: 2 treatments 09/14: Albuterol Inhal Kaila: RQ6 PRN The patient's Clinical Indicators include: xxxxx Query created by: Esha Munson on 09/15/2017 8:58 AM Electronically signed by: Familia Strong MD 09/15/2017 2:50 PM
--- NOTE | 2017-09-15 15:57 | CARD ---
APPROVED REPORT EXAM: Two-dimensional and M-mode echocardiogram with Doppler and color Doppler. Other Information Quality : GoodRhythm : NSR INDICATION Dyspnea 2D DIMENSIONS IVSd1.56 (0.7-1.1cm)LVDd4.37 (3.9-5.9cm) LVOT Diameter2.30 (1.8-2.4cm)PWd1.08 (0.7-1.1cm) IVSs1.47 (0.8-1.2cm)LVDs2.29 (2.5-4.0cm) FS (%) 47.7 %PWs1.53 (0.8-1.2cm) M-Mode DIMENSIONS Left Atrium (MM)4.00 (2.5-4.0cm)IVSd1.03 (0.7-1.1cm) Aortic Root3.24 (2.2-3.7cm)LVDd5.47 (4.0-5.6cm) Aortic Cusp Exc.1.76 (1.5-2.0cm)PWd1.26 (0.7-1.1cm) IVSs1.50 cmFS (%) 49 % LVDs2.76 (2.0-3.8cm)PWs1.62 cm Mitral Valve MV E Xzomzgzf99.9cm/sMV DECEL [id number] A Syyctahb75.3cm/s MV LQH607ztA/A ratio0.9MVA (PHT)2.10cm2 TDI Lateral E' Peak V8.88cm/sMedial E' Peak V6.52cm/sE/Lateral E'8.7 E/Medial E'11.8 LEFT VENTRICLE The left ventricle is normal size. There is mild concentric left ventricular hypertrophy. The left ventricular function is normal. The left ventricular ejection fraction is within the normal range. .LVEF 65% There is normal LV segmental wall motion. The left ventricular diastolic function is normal. No left ventricle thrombus noted on this study. There is no ventricular septal defect visualized. There is no left ventricular aneurysm. There is no mass noted in the left ventricle. RIGHT VENTRICLE The right ventricle is normal size. There is normal right ventricular wall thickness. The right ventricular systolic function is normal. ATRIA The left atrium size is normal. The right atrium size is normal. The interatrial septum is intact with no evidence for an atrial septal defect. AORTIC VALVE The aortic valve is normal in structure. No aortic regurgitation is present. There is no aortic valvular stenosis. There is no aortic valvular vegetation. MITRAL VALVE The mitral valve is normal in structure. There is no evidence of mitral valve prolapse. There is no mitral valve stenosis. There is no mitral valve regurgitation noted. TRICUSPID VALVE The tricuspid valve is normal in structure. There is mild tricuspid regurgitation. There is no tricuspid valve prolapse or vegetation. There is no tricuspid valve stenosis. PULMONIC VALVE The pulmonary valve is normal in structure. There is no pulmonic valvular regurgitation. There is no pulmonic valvular stenosis. GREAT VESSELS The aortic root is normal in size. The IVC is normal in size and collapses >50% with inspiration. PERICARDIAL EFFUSION The pericardium appears normal. <Conclusion> The left ventricle is normal size. There is mild concentric left ventricular hypertrophy. The left ventricular function is normal. The left ventricular ejection fraction is within the normal range. .LVEF 65% The aortic valve is normal in structure. The mitral valve is normal in structure.
--- NOTE | 2017-09-15 19:26 | PN ---
DATE: 09/15/2017 SUBJECTIVE: The patient is seen by me on 09/15/2017. She was still complaining of shortness of breath and some wheezing. PHYSICAL EXAMINATION: VITAL SIGNS: Blood pressure 122/67, temperature 97.8, respiratory rate 20, and pulse 77. HEENT: Pupils equal, reactive to light. Normal-appearing mucosa of the conjunctivae, oropharynx and nasal membrane mucosa. NECK: Supple. No JVD. No carotid bruit. No lymph node. No thyromegaly. CHEST AND LUNGS: Bilateral symmetrical expansion. Good air exchange. No rales. No rhonchi. CARDIOVASCULAR SYSTEM: PMI not localized. S1 and S2. No additional sounds. ABDOMEN: Normoactive bowel sounds. No tenderness. No organomegaly. No masses. EXTREMITIES: No cyanosis, no clubbing, no edema. Right knee is surgically dressed. HEALTH PROFESSOR: Alert, awake, oriented x3. No neurological deficit could be appreciated. ASSESSMENT: 1. Bilateral pulmonary embolism. 2. Hypertension. 3. Osteoarthritis. PLAN: We will do pulmonary consult and continue Lovenox and current management. Discussed the patient's condition with her daughter as well as orthopedic surgeon, Dr. Ricardo as well as the patient. Familia Strong MD
[2017-09-15 22:01] LABS: FOLATE > 20.0 ng/mL
[2017-09-16] MEDS: Acetylcysteine 20% Inhal Soln (4ml) INH SCH ×2 (07:51→19:06)
[2017-09-16] MEDS: Albuterol 0.083% Inhal Sol (2.5 mg/3 mL) UD INH PRN ×2 (07:51→19:06)
--- NOTE | 2017-09-16 08:39 | CP.PCM.PN ---
Subjective - Date & Time of Evaluation Date of Evaluation: 09/16/17 Time of Evaluation: 08:36 - Subjective Subjective: Patient states she isn't sleeping much, and that she still has a lot of pain in her knee, but it is controlled. Objective - Vital Signs/Intake and Output Vital Signs (last 24 hours): Temp Pulse Resp BP Pulse Ox 98.8 F 77 18 119/75 98 09/16/17 08:25 09/16/17 08:25 09/16/17 08:25 09/16/17 08:25 09/16/17 08:25 - Medications Medications: Current Medications Acetaminophen (Tylenol 325mg Tab) 650 mg PO Q6 PRN PRN Reason: Pain, Mild (1-3) Last Admin: 09/16/17 05:02 Dose: 650 mg Acetylcysteine (Acetylcysteine 20%) 2 ml INH RBID MARIA C Last Admin: 09/16/17 07:51 Dose: 2 ml Albuterol Sulfate (Albuterol 0.083% Inhal Kaila (2.5 Mg/3 Ml) Ud) 2.5 mg INH RQ6 PRN PRN Reason: Shortness of Breath Last Admin: 09/16/17 07:51 Dose: 2.5 mg Enoxaparin Sodium (Lovenox) 90 mg SC Q12 MARIA C PRN Reason: Protocol Last Admin: 09/15/17 21:41 Dose: 90 mg Hydrochlorothiazide (Microzide) 12.5 mg PO 1800 [facility] Last Admin: 09/14/17 19:03 Dose: Not Given Hydromorphone HCl (Dilaudid) 1 mg IVP Q4H PRN PRN Reason: Pain, severe (8-10) Iron Sucrose 100 mg/ Sodium (Chloride) 105 mls @ 105 mls/hr IVPB DAILY [facility] Lactulose (Enulose) 20 gm PO Q4H PRN PRN Reason: Constipation Last Admin: 09/15/17 05:50 Dose: 20 gm Losartan Potassium (Cozaar) 100 mg PO DAILY [facility] Last Admin: 09/15/17 09:09 Dose: 100 mg Multivitamins/Minerals (Therapeutic-M Tab) 1 tab PO DAILY [facility] Last Admin: 09/15/17 09:05 Dose: 1 tab Ondansetron HCl (Zofran Tab) 4 mg PO Q6 PRN PRN Reason: Nausea/Vomiting Last Admin: 09/15/17 10:19 Dose: 4 mg Oxycodone/Acetaminophen (Percocet 5/325 Mg Tab) 2 tab PO Q4H PRN PRN Reason: Pain, moderate (4-7) Stop: 09/17/17 03:19 Last Admin: 09/15/17 09:03 Dose: 2 tab - Labs Labs: 09/15/17 09:03 09/15/17 09:03 PT 12.7 Seconds (9.8-13.1) 09/13/17 19:00 INR 1.1 (0.9-1.2) 09/13/17 19:00 APTT 33.6 Seconds (25.6-37.1) 09/13/17 19:00 - Extremities Exam Additional comments: RIght knee: incision intact, dry no erythema mild swelling +ROM ankle/toes, senation intact, mild peripheral edema RLE+DP/PT Pulses Assessment and Plan (1) Degenerative joint disease of knee Assessment & Plan: POD#9 s/p right total knee replacement transferred to [facility] due to PE Dr. Ricardo aware cont PT/OT/CPM orthopedically stable Status: Acute
[2017-09-16] MEDS: Multivitamin With Minerals Tab PO SCH (09:44)
[2017-09-16] MEDS: Enoxaparin 100 mg Syringe SC SCH ×2 (09:46→21:15)
[2017-09-16 09:56] LABS: HEMOGLOBIN 7.6 g/dL (12.0-16.0); MEAN CELL VOLUME 95.5 fl (81.0-99.0); MEAN CORPUSCULAR HEMOGLOBIN 31.7 pg (27.0-31.0); MEAN CORPUSCULAR HGB CONC 33.2 g/dL (33.0-37.0); RBC 2.39 Mil/uL (3.80-5.20); RED CELL DISTRIBUTION WIDTH 14.1 % (11.5-14.5); WHITE BLOOD COUNT 6.7 K/uL (4.8-10.8)
[2017-09-16 10:10] LABS: BLOOD UREA NITROGEN 11 mg/dl (7-17); CALCIUM 8.7 mg/dL (8.4-10.2); GFR AFRICAN-AMERICAN > 60; GFR NON-AFRICAN AMERICAN > 60
[2017-09-16] MEDS: Pantoprazole 40 mg EC Tab PO SCH (13:27)
--- NOTE | 2017-09-16 13:45 | CP.PCM.CON ---
History of Present Illness - History of Present Illness History of Present Illness: This 71-year-old female underwent a total knee replacement on the right proximally 9 days ago. She had been transferred to subacute rehabilitation on September 10 and appeared to be doing well in that program and had been receiving prophylactic dosing of enoxaparin 40 mg once daily. 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 She was sent to the emergency room after examination and CT angiogram of the chest revealed pulmonary embolization in the right upper lobe and the left lower lobe. She was admitted to the acute medical floor and placed on full dose anticoagulation with enoxaparin 1 mg/kg every 12 hours. Her oxygenation was good on supplemental O2 via nasal cannula. Her symptoms did gradually improve. Venous duplex scanning of the lower extremity is failed to show any residual deep vein thrombosis. She had no prior history of coagulopathy or DVT and denies any family history of same. Review of Systems - Cardiovascular Cardiovascular: Chest Pain at Rest - Respiratory Respiratory: Dyspnea - Gastrointestinal Gastrointestinal: Constipation (noted in subacute rehabilitation) - Musculoskeletal Musculoskeletal: As Per HPI Past Patient History - Tetanus Immunizations Tetanus Immunization: Unknown - Past Medical History & Family History Past Medical History?: Yes Pertinent Family History: No coagulopathies or DVT/PE. Positive history of colon cancer. - Past Social History Smoking Status: Never Smoked Chewing Tobacco Use: No Cigar Use: No Alcohol: Social Drugs: Denies Home Situation {Lives}: With Family - CARDIAC Hx Hypertension: Yes - PULMONARY Hx Asthma: Yes (sleep apnea) Hx Pneumonia: Yes (" IN THE 1970'S") - NEUROLOGICAL Hx Neurological Disorder: No - HEENT Hx HEENT Problems: No - RENAL Hx Chronic Kidney Disease: No - ENDOCRINE/METABOLIC Hx Endocrine Disorders: No - HEMATOLOGICAL/ONCOLOGICAL Hx Anemia: Yes (On supplemental iron prior to admission) - INTEGUMENTARY Hx Dermatological Problems: No - MUSCULOSKELETAL/RHEUMATOLOGICAL Hx Arthritis: Yes Hx Fractures: Yes (HX: TOES) - GASTROINTESTINAL Hx Constipation: Yes (In transitional care unit) Other/Comment: Colonoscopy with polypectomy - GENITOURINARY/GYNECOLOGICAL Hx Genitourinary Disorders: No - PSYCHIATRIC Hx Depression: Yes - SURGICAL HISTORY Hx Gastric Bypass Surgery: Yes Hx Joint Replacement: Yes (09/07/2017 right TKR) Hx Tonsillectomy: Yes Other/Comment: Bunionectomy, reduction mammoplasty 2000 - ANESTHESIA Hx Anesthesia: Yes Hx Anesthesia Reactions: No Hx Malignant Hyperthermia: No Meds Allergies/Adverse Reactions: Allergies Allergy/AdvReac Type Severity Reaction Status Date / Time peanut Allergy Intermediate SHORTNESS Verified 09/13/17 18:06 OF BREATH - Medications Medications: Current Medications Acetaminophen (Tylenol 325mg Tab) 650 mg PO Q6 PRN PRN Reason: Pain, Mild (1-3) Last Admin: 09/16/17 13:14 Dose: 650 mg Acetylcysteine (Acetylcysteine 20%) 2 ml INH RBID [facility] C Last Admin: 09/16/17 07:51 Dose: 2 ml Albuterol Sulfate (Albuterol 0.083% Inhal Kaila (2.5 Mg/3 Ml) Ud) 2.5 mg INH RQ6 PRN PRN Reason: Shortness of Breath Last Admin: 09/16/17 07:51 Dose: 2.5 mg Enoxaparin Sodium (Lovenox) 90 mg SC Q12 [facility] PRN Reason: Protocol Last Admin: 09/16/17 09:46 Dose: 90 mg Hydrochlorothiazide (Microzide) 12.5 mg PO 1800 [facility] Last Admin: 09/15/17 18:30 Dose: 12.5 mg Hydromorphone HCl (Dilaudid) 1 mg IVP Q4H PRN PRN Reason: Pain, severe (8-10) Iron Sucrose 100 mg/ Sodium (Chloride) 105 mls @ 105 mls/hr IVPB DAILY [facility] Last Admin: 09/16/17 11:37 Dose: 105 mls/hr Lactulose (Enulose) 20 gm PO Q4H PRN PRN Reason: Constipation Last Admin: 09/15/17 05:50 Dose: 20 gm Losartan Potassium (Cozaar) 100 mg PO DAILY [facility] Last Admin: 09/16/17 09:44 Dose: 100 mg Multivitamins/Minerals (Therapeutic-M Tab) 1 tab PO DAILY [facility] Last Admin: 09/16/17 09:44 Dose: 1 tab Ondansetron HCl (Zofran Tab) 4 mg PO Q6 PRN PRN Reason: Nausea/Vomiting Last Admin: 09/15/17 10:19 Dose: 4 mg Oxycodone/Acetaminophen (Percocet 5/325 Mg Tab) 2 tab PO Q4H PRN PRN Reason: Pain, moderate (4-7) Stop: 09/17/17 03:19 Last Admin: 09/15/17 09:03 Dose: 2 tab Pantoprazole Sodium (Protonix Ec Tab) 40 mg PO DAILY [facility] Last Admin: 09/16/17 13:27 Dose: 40 mg Physical Exam - Additional Findings Additional findings: Well-nourished, well-developed female in no acute distress. Memory is intact, speech is fluent, cranial nerves appear intact. Pharynx is pink and mucous membranes are moist. Neck is supple and trachea is midline. No neck vein distention or carotid bruit. No dullness on chest percussion. Equal expansion. Breath sounds are well heard bilaterally without any rales or wheezes. No bronchial breathing or egophony. No rhonchi or rub. Heart sounds are well heard and the rhythm is slightly tachycardic. No increased P2. Abdomen is soft and nontender. Normal bowel sounds. Right knee has elasticized pressure dressing in place. Trace edema of the right pretibial region and ankle. No calf tenderness or palpable venous cords. No cyanosis. Negative Homans sign. Pulses intact. Left lower extremity appears grossly normal. Results - Vital Signs Recent Vital Signs: Last Vital Signs Temp 98.4 F 09/16/17 13:14 Pulse 80 09/16/17 12:14 Resp 18 09/16/17 12:14 BP 111/72 09/16/17 12:14 Pulse Ox 100 09/16/17 12:14 - Labs Result Diagrams: 09/16/17 09:48 09/16/17 09:48 Labs: Laboratory Results - last 24 hr 09/15/17 09/15/17 09/16/17 09:03 10:57 09:48 WBC 6.7 RBC 2.39 L Hgb 7.6 L Hct 22.8 L MCV 95.5 MCH 31.7 H MCHC 33.2 RDW 14.1 Plt Count 360 Sodium Potassium Chloride Carbon Dioxide Anion Gap BUN Creatinine Est GFR ( Amer) Est GFR (Non-Af Amer) Random Glucose Calcium Folate > 20.0 Stool Occult Blood Positive H 09/16/17 09:48 WBC RBC Hgb Hct MCV MCH MCHC RDW Plt Count Sodium 140 Potassium 4.1 Chloride 102 Carbon Dioxide 30 Anion Gap 12 BUN 11 Creatinine 0.7 Est GFR ( Amer) > 60 Est GFR (Non-Af Amer) > 60 Random Glucose 119 H Calcium 8.7 Folate Stool Occult Blood Assessment & Plan (1) Pulmonary embolism Status: Acute Priority: High (2) Iron deficiency anemia Status: Chronic Priority: High (3) Stool guaiac positive Status: Acute Priority: High - Assessment and Plan (Free Text) Assessment: Acute pulmonary embolism and the patient who has iron deficiency anemia and currently is stool guaiac positive. No evidence of acute gross bleeding. Stool is not melanotic. Recent complaint of constipation postoperatively. Currently on full anticoagulation without any ill effects. GI consultation has been requested. Patient may require discontinuance of anticoagulation and insertion of temporary IVC filter if any evidence of bleeding occurs. May be closely monitored while hospitalized for any change in clinical status. She will require gastrointestinal workup subsequently. - Date & Time Date: 09/16/17 Time: 13:42
--- NOTE | 2017-09-16 18:45 | PN ---
DATE: 09/16/2017 SUBJECTIVE: The patient is seen today, 09/16/2017. She is not in any cardiopulmonary distress today, on bronchodilators. PHYSICAL EXAMINATION: VITAL SIGNS: Blood pressure is 111/72, temperature 98.4, respiratory rate 18, and pulse 80. HEENT: Pupils equal, reactive to light. Normal-appearing mucosa of the conjunctivae, oropharyngeal, and nasal membrane mucosa. NECK: Supple. No JVD, no carotid bruits, no lymph node, no thyromegaly. CHEST AND LUNGS: Bilateral symmetrical expansion. Few scattered rhonchi. CARDIOVASCULAR SYSTEM: PMI not localized. S1 and S2. No additional sounds. ABDOMEN: Normoactive bowel sounds. No tenderness, no organomegaly, and no masses. EXTREMITIES: No cyanosis, no clubbing, no edema. 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 No neurological deficit could be appreciated. ASSESSMENT: Status post right total knee replacement, pulmonary embolism, and iron-deficiency anemia. PLAN: We will continue supplementing iron and GI consult to rule out any underlying GI bleeding. I will give the patient Protonix and follow Pulmonary recommendations. We will also call Vascular Surgery for possible IVC filter placement. Familia Strong MD
[2017-09-17 06:15] LABS: MEAN CORPUSCULAR HEMOGLOBIN 32.9 pg (27.0-31.0); MEAN CORPUSCULAR HGB CONC 34.6 g/dL (33.0-37.0); RBC 2.28 Mil/uL (3.80-5.20); RED CELL DISTRIBUTION WIDTH 14.2 % (11.5-14.5)
[2017-09-17 06:27] LABS: HEMOGLOBIN 7.5 g/dL (12.0-16.0)
--- NOTE | 2017-09-17 06:37 | CP.PCM.CON ---
History of Present Illness - History of Present Illness History of Present Illness: Surgery 71 F w recent h/o knee surgery came with SOB while she was in TCU. Pt also reports nausea and vomiting. Reports having melena. Denies fever, CP, diarrhea, syncopy, vision changes, OWEN, facial asymmetry, focal weakness, hematochezia, hematemesis, hematuria. Found to have PE on CT. Pt was placed on thereaputic dose of Lovenox BID. Hgb was low 7.5. Occult blood test was +. Surgery is consulted for IVC filter. PMHx HTN, asthma, [place] PSHX- recent knee sx, breast reduction, toe surgery Fam Hx- Extensive cancer history in family including mother ( stomach), maternal grandmother ( stomach), cousin ( pancreatic) and brother ( throat) Medications- Metformin, Amlodipine, ASA 81 mg, allergy medication Social- tobacco, alcohol or drug use Allergies-peanut PMD- Dr. Karen Estrella Review of Systems - Review of Systems Review of Systems: See HPI - Respiratory Respiratory: Dyspnea Past Patient History - Tetanus Immunizations Tetanus Immunization: Unknown - Past Medical History & Family History Past Medical History?: Yes - Past Social History Smoking Status: Never Smoked Chewing Tobacco Use: No Cigar Use: No Alcohol: Social Drugs: Denies Home Situation {Lives}: With Family - CARDIAC Hx Hypertension: Yes - PULMONARY Hx Asthma: Yes (sleep apnea) Hx Pneumonia: Yes (" IN THE 1970'S") - NEUROLOGICAL Hx Neurological Disorder: No - HEENT Hx HEENT Problems: No - RENAL Hx Chronic Kidney Disease: No - ENDOCRINE/METABOLIC Hx Endocrine Disorders: No - HEMATOLOGICAL/ONCOLOGICAL Hx Anemia: Yes (On supplemental iron prior to admission) - INTEGUMENTARY Hx Dermatological Problems: No - MUSCULOSKELETAL/RHEUMATOLOGICAL Hx Arthritis: Yes Hx Fractures: Yes (HX: TOES) - GASTROINTESTINAL Hx Constipation: Yes (In transitional care unit) Other/Comment: Colonoscopy with polypectomy - GENITOURINARY/GYNECOLOGICAL Hx Genitourinary Disorders: No - PSYCHIATRIC Hx Depression: Yes - SURGICAL HISTORY Hx Gastric Bypass Surgery: Yes Hx Joint Replacement: Yes (09/07/2017 right TKR) Hx Tonsillectomy: Yes Other/Comment: Bunionectomy, reduction mammoplasty 1999 - ANESTHESIA Hx Anesthesia: Yes Hx Anesthesia Reactions: No Hx Malignant Hyperthermia: No Meds Allergies/Adverse Reactions: Allergies Allergy/AdvReac Type Severity Reaction Status Date / Time peanut Allergy Intermediate SHORTNESS Verified 09/13/17 18:06 OF BREATH - Medications Medications: Current Medications Acetaminophen (Tylenol 325mg Tab) 650 mg PO Q6 PRN PRN Reason: Pain, Mild (1-3) Last Admin: 09/17/17 05:25 Dose: 650 mg Acetylcysteine (Acetylcysteine 20%) 2 ml INH RBID [facility] Last Admin: 09/16/17 19:06 Dose: 2 ml Albuterol Sulfate (Albuterol 0.083% Inhal Kaila (2.5 Mg/3 Ml) Ud) 2.5 mg INH RQ6 PRN PRN Reason: Shortness of Breath Last Admin: 09/16/17 19:06 Dose: 2.5 mg Enoxaparin Sodium (Lovenox) 90 mg SC Q12 [facility] PRN Reason: Protocol Last Admin: 09/16/17 21:15 Dose: 90 mg Hydrochlorothiazide (Microzide) 12.5 mg PO 1800 [facility] Last Admin: 09/16/17 17:28 Dose: 12.5 mg Hydromorphone HCl (Dilaudid) 1 mg IVP Q4H PRN PRN Reason: Pain, severe (8-10) Iron Sucrose 100 mg/ Sodium (Chloride) 105 mls @ 105 mls/hr IVPB DAILY [facility] Last Admin: 09/16/17 11:37 Dose: 105 mls/hr Lactulose (Enulose) 20 gm PO Q4H PRN PRN Reason: Constipation Last Admin: 09/15/17 05:50 Dose: 20 gm Losartan Potassium (Cozaar) 100 mg PO DAILY [facility] Last Admin: 09/16/17 09:44 Dose: 100 mg Multivitamins/Minerals (Therapeutic-M Tab) 1 tab PO DAILY [facility] Last Admin: 09/16/17 09:44 Dose: 1 tab Ondansetron HCl (Zofran Tab) 4 mg PO Q6 PRN PRN Reason: Nausea/Vomiting Last Admin: 09/15/17 10:19 Dose: 4 mg Pantoprazole Sodium (Protonix Ec Tab) 40 mg PO DAILY [facility] Last Admin: 09/16/17 13:27 Dose: 40 mg Physical Exam - Constitutional Appears: No Acute Distress - Head Exam Head Exam: ATRAUMATIC, NORMAL INSPECTION, NORMOCEPHALIC - Eye Exam Eye Exam: EOMI, Normal appearance, PERRL Pupil Exam: NORMAL ACCOMODATION, PERRL - ENT Exam ENT Exam: Mucous Membranes Moist, Normal Exam - Neck Exam Neck exam: Positive for: Normal Inspection - Respiratory Exam Respiratory Exam: Clear to Auscultation Bilateral, NORMAL BREATHING PATTERN - Cardiovascular Exam Cardiovascular Exam: REGULAR RHYTHM, +S1, +S2 - GI/Abdominal Exam GI & Abdominal Exam: Soft. absent: Distended, Firm, Tenderness - Exam Exam: NORMAL INSPECTION - Extremities Exam Extremities exam: Negative for: pedal edema, tenderness - Back Exam Back exam: NORMAL INSPECTION - Neurological Exam Neurological exam: Alert, CN II-XII Intact, Normal Gait, Oriented x3, Reflexes Normal - Psychiatric Exam Psychiatric exam: Normal Affect, Normal Mood - Skin Skin Exam: Dry, Intact, Normal Color, Warm Results - Vital Signs Recent Vital Signs: Last Vital Signs Temp 99.1 F 09/17/17 05:20 Pulse 85 09/17/17 05:20 Resp 18 09/17/17 05:20 BP 132/61 09/17/17 05:20 Pulse Ox 98 09/17/17 05:20 - Labs Result Diagrams: 09/17/17 04:45 09/17/17 04:45 Labs: Laboratory Results - last 24 hr 09/16/17 09/16/17 09/17/17 09:48 09:48 04:45 WBC 6.7 7.0 RBC 2.39 L 2.28 L Hgb 7.6 L 7.5 L Hct 22.8 L 21.6 L MCV 95.5 95.0 MCH 31.7 H 32.9 H MCHC 33.2 34.6 RDW 14.1 14.2 Plt Count 360 405 H Sodium 140 Potassium 4.1 Chloride 102 Carbon Dioxide 30 Anion Gap 12 BUN 11 Creatinine 0.7 Est GFR ( Amer) > 60 Est GFR (Non-Af Amer) > 60 Random Glucose 119 H Calcium 8.7 Assessment & Plan - Assessment and Plan (Free Text) Assessment: PE with GI bleed on anticoagulation -WIll plan on IVC filter Tuesday afternoon -NPO Tuesday -MEdical management WILFREDO Osullivan
[2017-09-17 06:38] LABS: BLOOD UREA NITROGEN 10 mg/dl (7-17); CALCIUM 8.8 mg/dL (8.4-10.2); GFR AFRICAN-AMERICAN > 60; GFR NON-AFRICAN AMERICAN > 60
[2017-09-17] MEDS: Acetylcysteine 20% Inhal Soln (4ml) INH SCH ×2 (07:40→19:53)
[2017-09-17] MEDS: Albuterol 0.083% Inhal Sol (2.5 mg/3 mL) UD INH PRN ×2 (07:41→19:53)
[2017-09-17] MEDS ORDERED: Chlorhexidine Gluconate 1 APPL/PKT TP ONE (07:54)
[2017-09-17] MEDS: Enoxaparin 100 mg Syringe SC SCH ×2 (09:38→21:36)
[2017-09-17] MEDS: Pantoprazole 40 mg EC Tab PO SCH (09:38)
[2017-09-17] MEDS: Multivitamin With Minerals Tab PO SCH (09:38)
--- NOTE | 2017-09-17 11:02 | CP.PCM.PN ---
Subjective - Date & Time of Evaluation Date of Evaluation: 09/17/17 Time of Evaluation: 11:02 - Subjective Subjective: Seated up in bed, talking on the phone with her son. Substernal chest pressure sensation has subsided. No complaints of shortness of breath SpO2 presently 97% on room air. She was seen by GI earlier today. RLE still slightly more edematous than the left. Ecchymosis noted in the right calf medially. No palpable venous cords, no visible venous engorgement. Negative Samantha's sign, no calf tenderness. No dullness to chest percussion, equal expansion. Breath sounds present equally in both lungs. Discussed at length with the patient as well as her son. Explained current clinical findings and proposed treatment plan. Tentative for IVC filter Tuesday. Monitor hemoglobin. Objective - Vital Signs/Intake and Output Vital Signs (last 24 hours): Temp Pulse Resp BP Pulse Ox 97.9 F 70 18 122/78 99 09/17/17 09:00 09/17/17 09:38 09/17/17 09:00 09/17/17 09:38 09/17/17 09:00 - Medications Medications: Current Medications Acetaminophen (Tylenol 325mg Tab) 650 mg PO Q6 PRN PRN Reason: Pain, Mild (1-3) Last Admin: 09/17/17 05:25 Dose: 650 mg Acetylcysteine (Acetylcysteine 20%) 2 ml INH RBID [facility] Last Admin: 09/17/17 07:40 Dose: 2 ml Albuterol Sulfate (Albuterol 0.083% Inhal Kaila (2.5 Mg/3 Ml) Ud) 2.5 mg INH RQ6 PRN PRN Reason: Shortness of Breath Last Admin: 09/17/17 07:41 Dose: 2.5 mg Enoxaparin Sodium (Lovenox) 90 mg SC Q12 [facility] PRN Reason: Protocol Last Admin: 09/17/17 09:38 Dose: 90 mg Hydrochlorothiazide (Microzide) 12.5 mg PO 1800 [facility] Last Admin: 09/16/17 17:28 Dose: 12.5 mg Hydromorphone HCl (Dilaudid) 1 mg IVP Q4H PRN PRN Reason: Pain, severe (8-10) Iron Sucrose 100 mg/ Sodium (Chloride) 105 mls @ 105 mls/hr IVPB DAILY [facility] Last Admin: 09/16/17 11:37 Dose: 105 mls/hr Sodium Chloride (Sodium Chloride 0.9%) 1,000 mls @ 100 mls/hr IV .Q10H [facility] Stop: 09/19/17 23:59 Lactulose (Enulose) 20 gm PO Q4H PRN PRN Reason: Constipation Last Admin: 09/15/17 05:50 Dose: 20 gm Losartan Potassium (Cozaar) 100 mg PO DAILY [facility] Last Admin: 09/17/17 09:38 Dose: 100 mg Multivitamins/Minerals (Therapeutic-M Tab) 1 tab PO DAILY [facility] Last Admin: 09/17/17 09:38 Dose: 1 tab Ondansetron HCl (Zofran Tab) 4 mg PO Q6 PRN PRN Reason: Nausea/Vomiting Last Admin: 09/15/17 10:19 Dose: 4 mg Pantoprazole Sodium (Protonix Ec Tab) 40 mg PO DAILY [facility] Last Admin: 09/17/17 09:38 Dose: 40 mg - Labs Labs: 09/17/17 04:45 09/17/17 04:45 PT 12.7 Seconds (9.8-13.1) 09/13/17 19:00 INR 1.1 (0.9-1.2) 09/13/17 19:00 APTT 33.6 Seconds (25.6-37.1) 09/13/17 19:00 Assessment and Plan (1) Pulmonary embolism Status: Acute (2) Iron deficiency anemia Status: Chronic (3) Stool guaiac positive Status: Acute
--- NOTE | 2017-09-17 16:19 | CP.PCM.CON ---
<João Mcfarland - Last Filed: 09/17/17 16:10> History of Present Illness - History of Present Illness History of Present Illness: Initial PGY5 GI Consult note Jo Ann Vanegas is a 71 F w recent h/o knee surgery, chronic anemia who presented with SOB while she was in TCU. She was taken to the ER and found to have a new onset pulmonary PE. Pt also reports nausea and vomiting. She was started on therapeutic lovenox. She noted having darker cooler stools prior to the knee surgery while she was taking PO iron supplements. Denies fever, CP, diarrhea, syncopy, vision changes, OWEN, facial asymmetry, focal weakness, hematochezia, hematemesis, hematuria. Her hgb has been stable since the surgery ~7.5. Denied any rectal bleeding, hematemesis or coffee-ground emesis. Denies any abd pain. PMHx HTN, asthma, [facility] PSHX- recent knee sx, breast reduction, toe surgery Fam Hx- Extensive cancer history in family including mother ( stomach), maternal grandmother ( stomach), cousin ( pancreatic) and brother ( throat) Social- tobacco, alcohol or drug use ENdo hx: colonoscopy and EGD 2 years prior, does not recall results ROS: 12 point ROS conducted, neg other than above Past Patient History - Tetanus Immunizations Tetanus Immunization: Unknown - Past Medical History & Family History Past Medical History?: Yes - Past Social History Smoking Status: Never Smoked Chewing Tobacco Use: No Cigar Use: No Alcohol: Social Drugs: Denies Home Situation {Lives}: With Family - CARDIAC Hx Hypertension: Yes - PULMONARY Hx Asthma: Yes (sleep apnea) Hx Pneumonia: Yes (" IN THE 1970'S") - NEUROLOGICAL Hx Neurological Disorder: No - HEENT Hx HEENT Problems: No - RENAL Hx Chronic Kidney Disease: No - ENDOCRINE/METABOLIC Hx Endocrine Disorders: No - HEMATOLOGICAL/ONCOLOGICAL Hx Anemia: Yes (On supplemental iron prior to admission) - INTEGUMENTARY Hx Dermatological Problems: No - MUSCULOSKELETAL/RHEUMATOLOGICAL Hx Arthritis: Yes Hx Fractures: Yes (HX: TOES) - GASTROINTESTINAL Hx Constipation: Yes (In transitional care unit) Other/Comment: Colonoscopy with polypectomy - GENITOURINARY/GYNECOLOGICAL Hx Genitourinary Disorders: No - PSYCHIATRIC Hx Depression: Yes - SURGICAL HISTORY Hx Gastric Bypass Surgery: Yes Hx Joint Replacement: Yes (09/07/2017 right TKR) Hx Tonsillectomy: Yes Other/Comment: Bunionectomy, reduction mammoplasty 2000 - ANESTHESIA Hx Anesthesia: Yes Hx Anesthesia Reactions: No Hx Malignant Hyperthermia: No Meds Allergies/Adverse Reactions: Allergies Allergy/AdvReac Type Severity Reaction Status Date / Time peanut Allergy Intermediate SHORTNESS Verified 09/13/17 18:06 OF BREATH - Medications Medications: Current Medications Acetaminophen (Tylenol 325mg Tab) 650 mg PO Q6 PRN PRN Reason: Pain, Mild (1-3) Last Admin: 09/17/17 12:38 Dose: 650 mg Acetylcysteine (Acetylcysteine 20%) 2 ml INH RBID [facility] Last Admin: 09/17/17 07:40 Dose: 2 ml Albuterol Sulfate (Albuterol 0.083% Inhal Kaila (2.5 Mg/3 Ml) Ud) 2.5 mg INH RQ6 PRN PRN Reason: Shortness of Breath Last Admin: 09/17/17 07:41 Dose: 2.5 mg Enoxaparin Sodium (Lovenox) 90 mg SC Q12 [facility] PRN Reason: Protocol Last Admin: 09/17/17 09:38 Dose: 90 mg Hydrochlorothiazide (Microzide) 12.5 mg PO 1800 [facility] Last Admin: 09/16/17 17:28 Dose: 12.5 mg Hydromorphone HCl (Dilaudid) 1 mg IVP Q4H PRN PRN Reason: Pain, severe (8-10) Iron Sucrose 100 mg/ Sodium (Chloride) 105 mls @ 105 mls/hr IVPB DAILY [facility] Last Admin: 09/17/17 11:40 Dose: 105 mls/hr Sodium Chloride (Sodium Chloride 0.9%) 1,000 mls @ 100 mls/hr IV .Q10H [facility] Stop: 09/19/17 23:59 Lactulose (Enulose) 20 gm PO Q4H PRN PRN Reason: Constipation Last Admin: 09/15/17 05:50 Dose: 20 gm Losartan Potassium (Cozaar) 100 mg PO DAILY [facility] Last Admin: 09/17/17 09:38 Dose: 100 mg Multivitamins/Minerals (Therapeutic-M Tab) 1 tab PO DAILY [facility] Last Admin: 09/17/17 09:38 Dose: 1 tab Ondansetron HCl (Zofran Tab) 4 mg PO Q6 PRN PRN Reason: Nausea/Vomiting Last Admin: 09/15/17 10:19 Dose: 4 mg Pantoprazole Sodium (Protonix Ec Tab) 40 mg PO DAILY [facility] Last Admin: 09/17/17 09:38 Dose: 40 mg Physical Exam - Constitutional Appears: Well, No Acute Distress - Head Exam Head Exam: ATRAUMATIC, NORMOCEPHALIC - Eye Exam Eye Exam: Normal appearance - ENT Exam ENT Exam: Mucous Membranes Moist, Normal Exam - Neck Exam Neck exam: Positive for: Normal Inspection - Respiratory Exam Respiratory Exam: Clear to Auscultation Bilateral, NORMAL BREATHING PATTERN. absent: Wheezes, Respiratory Distress - Cardiovascular Exam Cardiovascular Exam: REGULAR RHYTHM, +S1, +S2 - GI/Abdominal Exam GI & Abdominal Exam: Normal Bowel Sounds, Soft. absent: Diminished Bowel Sounds , Distended, Guarding, Organomegaly, Rebound, Rigid - Rectal Exam Rectal Exam: absent: Black Stool, Bloody Stool, Hemorrhoids - Extremities Exam Extremities exam: Negative for: joint swelling, pedal edema - Neurological Exam Neurological exam: Alert, Oriented x3 - Psychiatric Exam Psychiatric exam: Normal Affect, Normal Mood - Skin Skin Exam: Dry, Intact, Normal Color, Warm Results - Vital Signs Recent Vital Signs: Last Vital Signs Temp 98.5 F 09/17/17 12:42 Pulse 80 09/17/17 12:42 Resp 20 09/17/17 12:42 BP 102/52 L 09/17/17 12:42 Pulse Ox 100 09/17/17 12:42 - Labs Result Diagrams: 09/17/17 04:45 09/17/17 04:45 Labs: Laboratory Results - last 24 hr 09/17/17 09/17/17 04:45 04:45 WBC 7.0 RBC 2.28 L Hgb 7.5 L Hct 21.6 L MCV 95.0 MCH 32.9 H MCHC 34.6 RDW 14.2 Plt Count 405 H Sodium 141 Potassium 3.7 Chloride 103 Carbon Dioxide 29 Anion Gap 13 BUN 10 Creatinine 0.7 Est GFR ( Amer) > 60 Est GFR (Non-Af Amer) > 60 Random Glucose 97 Calcium 8.8 Assessment & Plan - Assessment and Plan (Free Text) Assessment: Jo Ann Vanegas is a 71F w/ hx of anemia, recent right knee surgery who presented to the ER for SOB and found to have a PE ADAN +FOBT Acute PE hx of polyps Plan: -hgb stable at ~7.5, no sign of GI bleed -continue Venofer tranfusions -recent EGD and colonoscopy 2 years prior -would hold on EGD at this time due to recent PE -as per surgery, planned for IVC filter on Tuesday -avoid NSIADs -recommend follow-up with her primary GI D/W Dr. Mallory <Cain Mallory - Last Filed: 09/17/17 17:06> Meds - Medications Medications: Current Medications Acetaminophen (Tylenol 325mg Tab) 650 mg PO Q6 PRN PRN Reason: Pain, Mild (1-3) Last Admin: 09/17/17 12:38 Dose: 650 mg Acetylcysteine (Acetylcysteine 20%) 2 ml INH RBID [facility] Last Admin: 09/17/17 07:40 Dose: 2 ml Albuterol Sulfate (Albuterol 0.083% Inhal Kaila (2.5 Mg/3 Ml) Ud) 2.5 mg INH RQ6 PRN PRN Reason: Shortness of Breath Last Admin: 09/17/17 07:41 Dose: 2.5 mg Enoxaparin Sodium (Lovenox) 90 mg SC Q12 [facility] PRN Reason: Protocol Last Admin: 09/17/17 09:38 Dose: 90 mg Hydrochlorothiazide (Microzide) 12.5 mg PO 1800 [facility] Last Admin: 09/16/17 17:28 Dose: 12.5 mg Hydromorphone HCl (Dilaudid) 1 mg IVP Q4H PRN PRN Reason: Pain, severe (8-10) Iron Sucrose 100 mg/ Sodium (Chloride) 105 mls @ 105 mls/hr IVPB DAILY [facility] Last Admin: 09/17/17 11:40 Dose: 105 mls/hr Sodium Chloride (Sodium Chloride 0.9%) 1,000 mls @ 100 mls/hr IV .Q10H [facility] Stop: 09/19/17 23:59 Lactulose (Enulose) 20 gm PO Q4H PRN PRN Reason: Constipation Last Admin: 09/15/17 05:50 Dose: 20 gm Losartan Potassium (Cozaar) 100 mg PO DAILY [facility] Last Admin: 09/17/17 09:38 Dose: 100 mg Multivitamins/Minerals (Therapeutic-M Tab) 1 tab PO DAILY [facility] Last Admin: 09/17/17 09:38 Dose: 1 tab Ondansetron HCl (Zofran Tab) 4 mg PO Q6 PRN PRN Reason: Nausea/Vomiting Last Admin: 09/15/17 10:19 Dose: 4 mg Pantoprazole Sodium (Protonix Ec Tab) 40 mg PO DAILY [facility] Last Admin: 09/17/17 09:38 Dose: 40 mg Results - Vital Signs Recent Vital Signs: Last Vital Signs Temp 98.5 F 09/17/17 12:42 Pulse 80 09/17/17 12:42 Resp 20 09/17/17 12:42 BP 102/52 L 09/17/17 12:42 Pulse Ox 100 09/17/17 12:42 - Labs Result Diagrams: 09/17/17 04:45 09/17/17 04:45 Labs: Laboratory Results - last 24 hr 09/17/17 09/17/17 04:45 04:45 WBC 7.0 RBC 2.28 L Hgb 7.5 L Hct 21.6 L MCV 95.0 MCH 32.9 H MCHC 34.6 RDW 14.2 Plt Count 405 H Sodium 141 Potassium 3.7 Chloride 103 Carbon Dioxide 29 Anion Gap 13 BUN 10 Creatinine 0.7 Est GFR ( Amer) > 60 Est GFR (Non-Af Amer) > 60 Random Glucose 97 Calcium 8.8 Attending/Attestation - Attestation I have personally seen and examined this patient.: Yes I have fully participated in the care of the patient.: Yes I have reviewed all pertinent clinical information: Yes Notes (Text): 09/17/17 16:57 This is a 71 year old F with history of anemia, recent right knee surgery who presented to the ER for SOB and found to have a PE on anti platelet now. Rectal brown stool. Occult positive. EGD/ colonoscopy 2 years ago which was negative. Can continue anti platelet as there is no active GI bleeding. Continue iron transfusions as per in home tutor. Diet as tolerated. Agree with IVC filter. Recommend follow with primary GI. Thank you for letting us participate in the care of your patient
--- NOTE | 2017-09-17 21:45 | PN ---
DATE: 09/17/2017 SUBJECTIVE: The patient is seen today, 09/17/2017. She is not in any cardiopulmonary distress today. Positive pallor. PHYSICAL EXAMINATION: VITAL SIGNS: Blood pressure is 102/52, temperature 98.5, respiratory rate 20, and pulse 80. HEENT: Pale mucosa of the conjunctiva. NECK: Supple. No JVD. No carotid bruit. No lymph node. No thyromegaly. CHEST AND LUNGS: Bilateral symmetrical expansion. Good air exchange. No rales, no rhonchi. CARDIOVASCULAR: PMI not localized. S1, S2. No additional sounds. ABDOMEN: Normoactive bowel sounds. No tenderness. No organomegaly. No masses. EXTREMITIES: No cyanosis, no clubbing, and no edema. PASTRY CHEF: Alert, awake, and oriented x2. NEUROLOGIC: No neurological deficit could be appreciated. ASSESSMENT: Status post right total knee replacement. Anemia of acute blood loss. Bilateral pulmonary embolism. PLAN: We will transfuse the patient one unit of packed RBCs and continue the Lovenox and monitor hemoglobin and hematocrit. GI consult. The patient is also scheduled for IVC filter placement. Familia Strong MD
--- NOTE | 2017-09-18 07:17 | CP.PCM.PN ---
Subjective - Date & Time of Evaluation Date of Evaluation: 09/18/17 Time of Evaluation: 07:15 - Subjective Subjective: Vascular Surgery - Dr. Osullivan Pt S&E. Pt s/p transfusion PRBC yesterday. She is feeling lethargic this morning and complains of pain in the Right knee and lower leg which is site of recent surgery. She is aware of plan for IVCF placement tomorrow. No Fevers/ Chills, SOB or chest pains. Objective - Vital Signs/Intake and Output Vital Signs (last 24 hours): Temp Pulse Resp BP Pulse Ox 98.5 F 86 19 141/75 99 09/18/17 05:00 09/18/17 05:00 09/18/17 05:00 09/18/17 05:00 09/18/17 05:00 - Medications Medications: Current Medications Acetaminophen (Tylenol 325mg Tab) 650 mg PO Q6 PRN PRN Reason: Pain, Mild (1-3) Last Admin: 09/17/17 23:05 Dose: 650 mg Acetylcysteine (Acetylcysteine 20%) 2 ml INH RBID [facility] Last Admin: 09/17/17 19:53 Dose: 2 ml Albuterol Sulfate (Albuterol 0.083% Inhal Kaila (2.5 Mg/3 Ml) Ud) 2.5 mg INH RQ6 PRN PRN Reason: Shortness of Breath Last Admin: 09/17/17 19:53 Dose: 2.5 mg Enoxaparin Sodium (Lovenox) 90 mg SC Q12 [facility] PRN Reason: Protocol Last Admin: 09/17/17 21:36 Dose: 90 mg Hydrochlorothiazide (Microzide) 12.5 mg PO 1800 [facility] Last Admin: 09/17/17 17:17 Dose: 12.5 mg Hydromorphone HCl (Dilaudid) 1 mg IVP Q4H PRN PRN Reason: Pain, severe (8-10) Iron Sucrose 100 mg/ Sodium (Chloride) 105 mls @ 105 mls/hr IVPB DAILY [facility] Last Admin: 09/17/17 11:40 Dose: 105 mls/hr Sodium Chloride (Sodium Chloride 0.9%) 1,000 mls @ 100 mls/hr IV .Q10H [facility] Stop: 09/19/17 23:59 Lactulose (Enulose) 20 gm PO Q4H PRN PRN Reason: Constipation Last Admin: 09/15/17 05:50 Dose: 20 gm Losartan Potassium (Cozaar) 100 mg PO DAILY [facility] Last Admin: 09/17/17 09:38 Dose: 100 mg Multivitamins/Minerals (Therapeutic-M Tab) 1 tab PO DAILY [facility] Last Admin: 09/17/17 09:38 Dose: 1 tab Ondansetron HCl (Zofran Tab) 4 mg PO Q6 PRN PRN Reason: Nausea/Vomiting Last Admin: 09/15/17 10:19 Dose: 4 mg Pantoprazole Sodium (Protonix Ec Tab) 40 mg PO DAILY [facility] Last Admin: 09/17/17 09:38 Dose: 40 mg - Labs Labs: 09/17/17 04:45 09/17/17 04:45 PT 12.7 Seconds (9.8-13.1) 09/13/17 19:00 INR 1.1 (0.9-1.2) 09/13/17 19:00 APTT 33.6 Seconds (25.6-37.1) 09/13/17 19:00 - Constitutional Appears: No Acute Distress - Head Exam Head Exam: ATRAUMATIC, NORMAL INSPECTION, NORMOCEPHALIC - Eye Exam Eye Exam: Normal appearance - Respiratory Exam Respiratory Exam: NORMAL BREATHING PATTERN. absent: Respiratory Distress - Cardiovascular Exam Cardiovascular Exam: REGULAR RHYTHM - Extremities Exam Extremities Exam: Calf Tenderness, Pedal Edema Additional comments: RLE edematous, warm to touch - Neurological Exam Neurological Exam: Alert, Oriented x3 - Psychiatric Exam Psychiatric exam: Normal Affect, Normal Mood - Skin Skin Exam: Dry, Intact Assessment and Plan - Assessment and Plan (Free Text) Assessment: 71 yo F w/ GI Bleed and B/L PE -Plan for IVCF tomorrow w/ Dr. Osullivan -Preop labs in AM -NPO after midnight -Transfusions as per primary team DW Dr. Abran Small PGY4
[2017-09-18] MEDS: Acetylcysteine 20% Inhal Soln (4ml) INH SCH ×2 (07:47→19:35)
[2017-09-18] MEDS: Albuterol 0.083% Inhal Sol (2.5 mg/3 mL) UD INH PRN ×2 (07:48→19:35)
[2017-09-18 08:04] LABS: HEMOGLOBIN 8.8 g/dL (12.0-16.0); MEAN CELL VOLUME 93.2 fl (81.0-99.0); MEAN CORPUSCULAR HEMOGLOBIN 32.4 pg (27.0-31.0); MEAN CORPUSCULAR HGB CONC 34.7 g/dL (33.0-37.0); RBC 2.72 Mil/uL (3.80-5.20); RED CELL DISTRIBUTION WIDTH 15.2 % (11.5-14.5); WHITE BLOOD COUNT 7.3 K/uL (4.8-10.8)
[2017-09-18] MEDS: Enoxaparin 100 mg Syringe SC SCH ×2 (08:42→22:08)
[2017-09-18] MEDS: Multivitamin With Minerals Tab PO SCH (11:26)
[2017-09-18] MEDS: Pantoprazole 40 mg EC Tab PO SCH (11:27)
[2017-09-19] MEDS: Sodium Chloride 0.9% 1,000 ML IV SCH ×3 (00:07→21:03)
--- NOTE | 2017-09-19 03:14 | PN ---
DATE: 09/18/2017 DAILY PROGRESS NOTE SUBJECTIVE: The patient is seen today, 09/18/2017. She is not in any cardiopulmonary distress. PHYSICAL EXAMINATION: VITAL SIGNS: Blood pressure 111/69, temperature 98.9, respiratory rate 16 and pulse 73. HEENT: Pupils equal, reactive to light. Slightly pale mucosa of the conjunctivae, oropharynx and nasal membrane mucosa. NECK: Supple. No JVD. No carotid bruit. No lymph node. No thyromegaly. CHEST AND LUNGS: Bilateral symmetrical expansion. Good air exchange. No rales. No rhonchi. CARDIOVASCULAR SYSTEM: PMI not localized. S1, S2. No additional sounds. ABDOMEN: Normoactive bowel sounds. No tenderness. No organomegaly. No masses. EXTREMITIES: No cyanosis, no clubbing, no edema. The right knee is surgically dressed. DIGITAL MEDIA MANAGER: Alert, awake, oriented x3. No neurological deficit could be appreciated. ASSESSMENT: 1. Bilateral pulmonary embolism. 2. Status post right total knee replacement. 3. Hypertension. 4. Anemia, multifactorial, status post transfusion 1 unit of packed red blood cells. PLAN: We will monitor hemoglobin and hematocrit. Continue GI consult and follow the recommendations. Continue anticoagulants for now. Mandy MD Tae
[2017-09-19 05:27] LABS: BASO % 0.5 % (0.0-2.0); EOS # 0.1 K/uL (0.0-0.7); EOS % 2.3 % (0.0-4.0); HEMOGLOBIN 7.9 g/dL (12.0-16.0); LYMPH # 1.7 K/uL (1.0-4.3); LYMPH % 25.8 % (20.0-40.0); MEAN CELL VOLUME 94.6 fl (81.0-99.0); MEAN CORPUSCULAR HEMOGLOBIN 32.1 pg (27.0-31.0); MEAN CORPUSCULAR HGB CONC 33.9 g/dL (33.0-37.0); MEAN PLATELET VOLUME 7.9 fl (7.2-11.7); MONO # 0.7 K/uL (0.0-0.8); MONO % 11.1 % (0.0-10.0); NEUT % 60.3 % (50.0-75.0); NRBC % 0.1 % (0.0-0.0); RBC 2.48 Mil/uL (3.80-5.20); RED CELL DISTRIBUTION WIDTH 14.9 % (11.5-14.5); WHITE BLOOD COUNT 6.6 K/uL (4.8-10.8)
[2017-09-19 05:39] LABS: INR 1.2 (0.9-1.2); PARTIAL THROMBOPLASTIN TIME 41.5 Seconds (25.6-37.1); PROTHROMBIN TIME 13.1 Seconds (9.8-13.1)
[2017-09-19 06:02] LABS: ALB/GLOB RATIO 1.1 (1.0-2.1); ALBUMIN 3.1 g/dL (3.5-5.0); ALT/SGPT 41 U/L (9-52); AST/SGOT 30 U/L (14-36); BLOOD UREA NITROGEN 12 mg/dl (7-17); CALCIUM 8.7 mg/dL (8.4-10.2); GFR AFRICAN-AMERICAN > 60; GFR NON-AFRICAN AMERICAN > 60
[2017-09-19] MEDS ORDERED: Potassium Chloride 10 mEq ER Tab PO ONE (07:15)
[2017-09-19] MEDS: Acetylcysteine 20% Inhal Soln (4ml) INH SCH ×2 (08:02→20:06)
[2017-09-19] MEDS: Albuterol 0.083% Inhal Sol (2.5 mg/3 mL) UD INH PRN ×2 (08:02→20:06)
[2017-09-19] MEDS: Pantoprazole 40 mg EC Tab PO SCH (09:32)
[2017-09-19] MEDS: Multivitamin With Minerals Tab PO SCH (09:33)
[2017-09-19] MEDS: Enoxaparin 100 mg Syringe SC SCH ×2 (09:37→21:02)
--- NOTE | 2017-09-19 10:32 | CP.PCM.PN ---
Subjective - Date & Time of Evaluation Date of Evaluation: 09/19/17 Time of Evaluation: 10:30 - Subjective Subjective: The patient was seen on rounds this morning in telemetry with the residents. She is tentatively scheduled for IVC filter placement later today. She no longer complains of any substernal discomfort or shortness of breath. She does have persistent postoperative pain at the right knee. There is dependent edema of the right lower extremity with ecchymosis in the right calf. Peripheral pulses in the right foot are present but diminished. No calf tenderness noted. No palpable venous cords. She has been transfused 1 unit of packed red blood cells on 09/17 and her hemoglobin today is 7.9 g. Enoxaparin has been held today in preparation for her vascular procedure. Objective - Vital Signs/Intake and Output Vital Signs (last 24 hours): Temp Pulse Resp BP Pulse Ox 98.3 F 73 18 123/52 L 100 09/19/17 08:00 09/19/17 09:33 09/19/17 08:00 09/19/17 09:33 09/19/17 08:00 - Medications Medications: Current Medications Acetaminophen (Tylenol 325mg Tab) 650 mg PO Q6 PRN PRN Reason: Pain, Mild (1-3) Last Admin: 09/18/17 23:43 Dose: 650 mg Acetylcysteine (Acetylcysteine 20%) 2 ml INH RBID [facility] Last Admin: 09/19/17 08:02 Dose: 2 ml Albuterol Sulfate (Albuterol 0.083% Inhal Kaila (2.5 Mg/3 Ml) Ud) 2.5 mg INH RQ6 PRN PRN Reason: Shortness of Breath Last Admin: 09/19/17 08:02 Dose: 2.5 mg Enoxaparin Sodium (Lovenox) 90 mg SC Q12 [facility] PRN Reason: Protocol Last Admin: 09/19/17 09:37 Dose: Not Given Hydrochlorothiazide (Microzide) 12.5 mg PO 1800 [facility] Last Admin: 09/18/17 17:16 Dose: 12.5 mg Hydromorphone HCl (Dilaudid) 1 mg IVP Q4H PRN PRN Reason: Pain, severe (8-10) Last Admin: 09/18/17 08:35 Dose: 1 mg Iron Sucrose 100 mg/ Sodium (Chloride) 105 mls @ 105 mls/hr IVPB DAILY [facility] Last Admin: 09/18/17 11:26 Dose: 105 mls/hr Sodium Chloride (Sodium Chloride 0.9%) 1,000 mls @ 100 mls/hr IV .Q10H [facility] Stop: 09/19/17 23:59 Last Admin: 09/19/17 00:07 Dose: 100 mls/hr Lactulose (Enulose) 20 gm PO Q4H PRN PRN Reason: Constipation Last Admin: 09/15/17 05:50 Dose: 20 gm Losartan Potassium (Cozaar) 100 mg PO DAILY [facility] Last Admin: 09/19/17 09:33 Dose: 100 mg Multivitamins/Minerals (Therapeutic-M Tab) 1 tab PO DAILY [facility] Last Admin: 09/19/17 09:33 Dose: 1 tab Ondansetron HCl (Zofran Tab) 4 mg PO Q6 PRN PRN Reason: Nausea/Vomiting Last Admin: 09/18/17 08:41 Dose: 4 mg Pantoprazole Sodium (Protonix Ec Tab) 40 mg PO DAILY [facility] Last Admin: 09/19/17 09:32 Dose: 40 mg - Labs Labs: 09/19/17 04:20 09/19/17 04:20 PT 13.1 Seconds (9.8-13.1) 09/19/17 04:20 INR 1.2 (0.9-1.2) 09/19/17 04:20 APTT 41.5 Seconds (25.6-37.1) H 09/19/17 04:20 Assessment and Plan (1) Pulmonary embolism Status: Acute (2) Iron deficiency anemia Status: Chronic (3) Stool guaiac positive Status: Acute
[2017-09-19] MEDS ORDERED: Sodium Chloride 0.9% 500 ML IV ONE ×2 (20:55→21:45)
[2017-09-19] MEDS ORDERED: Midazolam 2 MG/2 ML VIAL ONE (20:56)
[2017-09-19] MEDS ORDERED: Lidocaine 1% Inj (20ml) IJ ONE ×2 (21:15)
[2017-09-19] MEDS ORDERED: Iohexol 300 10 ML ONE (21:21)
[2017-09-19] MEDS ORDERED: Iohexol 300 100 ML IJ ONE (21:22)
[2017-09-19] MEDS ORDERED: Iohexol 300 10 ML IJ ONE (21:25)
--- NOTE | 2017-09-19 21:56 | PCM.SURG1 ---
Surgeon's Initial Post Op Note - Surgeon's Notes Surgeon: Dr. Osullivan Rn Cardiology: Dr. Small Type of Anesthesia: IV Sedation, Local Anesthesia Administered By: Robin Pre-Operative Diagnosis: Pulmonary embolism Operative Findings: same Post-Operative Diagnosis: same Operation Performed: Insertion of IVC Filter Specimen/Specimens Removed: IVC Filter (retrievable) Estimated Blood Loss: EBL {In ML}: 2 Blood Products Given: N/A Drains Used: No Drains Post-Op Condition: Good Date of Surgery/Procedure: 09/19/17 Time of Surgery/Procedure: 21:56
--- NOTE | 2017-09-20 00:11 | PN ---
DATE: 09/19/2017 DAILY PROGRESS NOTE SUBJECTIVE: The patient is seen today, 09/19/2017. She is scheduled for IVC filter placement today. PHYSICAL EXAMINATION: VITAL SIGNS: Blood pressure 135/77, temperature 98.3, respiratory rate 20, and pulse 86. HEENT: Pupils are equal and reactive to light. Normal-appearing mucosa of the conjunctivae, oropharynx and nasal membrane mucosa. NECK: Supple. No JVD. No carotid bruit. No lymph node. No thyromegaly. CHEST AND LUNGS: Bilateral symmetrical expansion. Good air exchange. No rales. No rhonchi. CARDIOVASCULAR SYSTEM: PMI not localized. S1, S2. No additional sounds. ABDOMEN: Normoactive bowel sounds. No tenderness. No organomegaly. No masses. EXTREMITIES: The right knee is surgically dressed and slight edema of the right lower extremity. COMMUNITY DEVELOPMENT COORDINATOR: Alert, awake, oriented x3. No neurological deficit could be appreciated. ASSESSMENT: 1. Bilateral pulmonary embolism. 2. Status post right total knee replacement. 3. History of hypertension. PLAN: The patient is for IVC filter placement. We will continue Lovenox for now and if hemoglobin continued to drop, we might need to stop it as the patient to get IVC filter as stool occult is positive. We will follow GI recommendations. Familia Strong MD
[2017-09-20 05:38] LABS: BASO % 0.4 % (0.0-2.0); EOS # 0.1 K/uL (0.0-0.7); HEMOGLOBIN 8.2 g/dL (12.0-16.0); LYMPH # 1.4 K/uL (1.0-4.3); LYMPH % 20.8 % (20.0-40.0); MEAN CELL VOLUME 94.7 fl (81.0-99.0); MEAN CORPUSCULAR HEMOGLOBIN 32.4 pg (27.0-31.0); MEAN CORPUSCULAR HGB CONC 34.2 g/dL (33.0-37.0); MONO # 0.8 K/uL (0.0-0.8); MONO % 12.3 % (0.0-10.0); NEUT # 4.2 K/uL (1.8-7.0); NEUT % 64.5 % (50.0-75.0); RBC 2.54 Mil/uL (3.80-5.20); RED CELL DISTRIBUTION WIDTH 14.9 % (11.5-14.5); WHITE BLOOD COUNT 6.5 K/uL (4.8-10.8)
--- NOTE | 2017-09-20 07:34 | CP.PCM.PN ---
Subjective - Date & Time of Evaluation Date of Evaluation: 09/20/17 Time of Evaluation: 07:33 - Subjective Subjective: Surgery Pt seen and examined. Underwent ICV filter yesterday and tolerated it well. Denies fever, nausea. Pain controlled. OOB, void. Objective - Vital Signs/Intake and Output Vital Signs (last 24 hours): Temp Pulse Resp BP Pulse Ox 98.5 F 74 18 116/71 96 09/20/17 04:49 09/20/17 04:49 09/20/17 04:49 09/20/17 04:49 09/20/17 04:49 Intake and Output: 09/20/17 09/20/17 06:59 18:59 Intake Total 500 Output Total 350 Balance 150 - Medications Medications: Current Medications Acetaminophen (Tylenol 325mg Tab) 650 mg PO Q6 PRN PRN Reason: Pain, Mild (1-3) Last Admin: 09/20/17 01:54 Dose: 650 mg Acetylcysteine (Acetylcysteine 20%) 2 ml INH RBID [facility] Last Admin: 09/19/17 20:06 Dose: 2 ml Albuterol Sulfate (Albuterol 0.083% Inhal Kaila (2.5 Mg/3 Ml) Ud) 2.5 mg INH RQ6 PRN PRN Reason: Shortness of Breath Last Admin: 09/19/17 20:06 Dose: 2.5 mg Enoxaparin Sodium (Lovenox) 90 mg SC Q12 [facility] PRN Reason: Protocol Last Admin: 09/19/17 21:02 Dose: Not Given Hydrochlorothiazide (Microzide) 12.5 mg PO 1800 [facility] Last Admin: 09/19/17 19:19 Dose: 12.5 mg Hydromorphone HCl (Dilaudid) 1 mg IVP Q4H PRN PRN Reason: Pain, severe (8-10) Last Admin: 09/18/17 08:35 Dose: 1 mg Iron Sucrose 100 mg/ Sodium (Chloride) 105 mls @ 105 mls/hr IVPB DAILY [facility] Last Admin: 09/19/17 10:38 Dose: 105 mls/hr Lactulose (Enulose) 20 gm PO Q4H PRN PRN Reason: Constipation Last Admin: 09/15/17 05:50 Dose: 20 gm Losartan Potassium (Cozaar) 100 mg PO DAILY [facility] Last Admin: 09/19/17 09:33 Dose: 100 mg Multivitamins/Minerals (Therapeutic-M Tab) 1 tab PO DAILY [facility] Last Admin: 09/19/17 09:33 Dose: 1 tab Ondansetron HCl (Zofran Tab) 4 mg PO Q6 PRN PRN Reason: Nausea/Vomiting Last Admin: 09/18/17 08:41 Dose: 4 mg Pantoprazole Sodium (Protonix Ec Tab) 40 mg PO DAILY [facility] Last Admin: 09/19/17 09:32 Dose: 40 mg - Labs Labs: 09/20/17 04:55 09/19/17 04:20 PT 13.1 Seconds (9.8-13.1) 09/19/17 04:20 INR 1.2 (0.9-1.2) 09/19/17 04:20 APTT 41.5 Seconds (25.6-37.1) H 09/19/17 04:20 - Constitutional Appears: No Acute Distress - Head Exam Head Exam: ATRAUMATIC, NORMAL INSPECTION, NORMOCEPHALIC - Eye Exam Eye Exam: EOMI, Normal appearance, PERRL Pupil Exam: NORMAL ACCOMODATION, PERRL - ENT Exam ENT Exam: Mucous Membranes Moist, Normal Exam - Neck Exam Neck Exam: Full ROM, Normal Inspection. absent: Lymphadenopathy - Respiratory Exam Respiratory Exam: NORMAL BREATHING PATTERN - Cardiovascular Exam Cardiovascular Exam: REGULAR RHYTHM, +S1, +S2. absent: Murmur - GI/Abdominal Exam GI & Abdominal Exam: Soft, Normal Bowel Sounds. absent: Distended, Tenderness - Exam Exam: NORMAL INSPECTION - Extremities Exam Extremities Exam: Full ROM, Normal Capillary Refill, Normal Inspection. absent : Joint Swelling, Pedal Edema Additional comments: Dressing C/D/I./ no Hematoma, no ecchymosis - Back Exam Back Exam: NORMAL INSPECTION - Neurological Exam Neurological Exam: Alert, Awake, CN II-XII Intact, Normal Gait, Oriented x3 - Psychiatric Exam Psychiatric exam: Normal Affect, Normal Mood - Skin Skin Exam: Dry, Intact, Normal Color, Warm Assessment and Plan - Assessment and Plan (Free Text) Assessment: POD 1 s/p IVC filter for PE -OK to take dressing off -Resume regular activity Will WILFREDO Osullivan
[2017-09-20] MEDS: Acetylcysteine 20% Inhal Soln (4ml) INH SCH ×2 (08:17→19:21)
[2017-09-20] MEDS: Albuterol 0.083% Inhal Sol (2.5 mg/3 mL) UD INH PRN ×2 (08:17→19:20)
[2017-09-20] MEDS: Enoxaparin 100 mg Syringe SC SCH (08:57)
[2017-09-20] MEDS: Multivitamin With Minerals Tab PO SCH (08:58)
[2017-09-20] MEDS: Pantoprazole 40 mg EC Tab PO SCH (08:58)
--- NOTE | 2017-09-20 09:33 | RAD ---
Date of service: 09/19/2017 HISTORY: chest pain COMPARISON: No prior. FINDINGS: LUNGS: No active pulmonary disease. PLEURA: No significant pleural effusion identified, no pneumothorax apparent. CARDIOVASCULAR: Normal. OSSEOUS STRUCTURES: No significant abnormalities. VISUALIZED UPPER ABDOMEN: In situ IVC filter. Metallic clips of left parasagittal upper -mid abdomen OTHER FINDINGS: None. IMPRESSION: No active disease.
--- NOTE | 2017-09-20 09:34 | RAD ---
Date of service: 09/19/2017 PROCEDURE: Intraoperative Fluoroscopy. HISTORY: IVC FILTER FINDINGS: Fluoroscopic assistance was provided. Fluoroscopy time = 155 seconds. Please refer to the operative report for additional details.
--- NOTE | 2017-09-20 10:51 | CP.PCM.PN ---
Subjective - Date & Time of Evaluation Date of Evaluation: 09/20/17 Time of Evaluation: 09:00 - Subjective Subjective: Patient was seen and examined at bedside with Dr. Anders. She had the IVC placed yesterday evening, 8p.m. She reports feeling much better today and denies pain on right thigh due to IVC filter and denies pain on right knee where she had surgery. She reports great appetite and states that she had three bowel movements yesterday, all formed. She denies abdominal pain, nausea, fever, dyspnea, chills and chest pain. Objective - Vital Signs/Intake and Output Vital Signs (last 24 hours): Temp Pulse Resp BP Pulse Ox 98.6 F 72 20 143/84 96 09/20/17 08:00 09/20/17 08:58 09/20/17 08:00 09/20/17 08:58 09/20/17 08:00 Intake and Output: 09/20/17 09/20/17 06:59 18:59 Intake Total 500 Output Total 350 Balance 150 - Medications Medications: Current Medications Acetaminophen (Tylenol 325mg Tab) 650 mg PO Q6 PRN PRN Reason: Pain, Mild (1-3) Last Admin: 09/20/17 01:54 Dose: 650 mg Acetylcysteine (Acetylcysteine 20%) 2 ml INH RBID [facility] Last Admin: 09/20/17 08:17 Dose: 2 ml Albuterol Sulfate (Albuterol 0.083% Inhal Kaila (2.5 Mg/3 Ml) Ud) 2.5 mg INH RQ6 PRN PRN Reason: Shortness of Breath Last Admin: 09/20/17 08:17 Dose: 2.5 mg Enoxaparin Sodium (Lovenox) 40 mg SC DAILY [facility] PRN Reason: Protocol Hydrochlorothiazide (Microzide) 12.5 mg PO 1800 [facility] Last Admin: 09/19/17 19:19 Dose: 12.5 mg Hydromorphone HCl (Dilaudid) 1 mg IVP Q4H PRN PRN Reason: Pain, severe (8-10) Last Admin: 09/18/17 08:35 Dose: 1 mg Iron Sucrose 100 mg/ Sodium (Chloride) 105 mls @ 105 mls/hr IVPB DAILY [facility] Last Admin: 09/20/17 09:43 Dose: 105 mls/hr Lactulose (Enulose) 20 gm PO Q4H PRN PRN Reason: Constipation Last Admin: 09/15/17 05:50 Dose: 20 gm Losartan Potassium (Cozaar) 100 mg PO DAILY [facility] Last Admin: 09/20/17 08:58 Dose: 100 mg Multivitamins/Minerals (Therapeutic-M Tab) 1 tab PO DAILY [facility] Last Admin: 09/20/17 08:58 Dose: 1 tab Ondansetron HCl (Zofran Tab) 4 mg PO Q6 PRN PRN Reason: Nausea/Vomiting Last Admin: 09/18/17 08:41 Dose: 4 mg Pantoprazole Sodium (Protonix Ec Tab) 40 mg PO DAILY [facility] Last Admin: 09/20/17 08:58 Dose: 40 mg - Labs Labs: 09/20/17 04:55 09/19/17 04:20 PT 13.1 Seconds (9.8-13.1) 09/19/17 04:20 INR 1.2 (0.9-1.2) 09/19/17 04:20 APTT 41.5 Seconds (25.6-37.1) H 09/19/17 04:20 - Constitutional Appears: Well, Non-toxic, No Acute Distress - Head Exam Head Exam: NORMAL INSPECTION - Eye Exam Eye Exam: Normal appearance - ENT Exam ENT Exam: Mucous Membranes Moist - Neck Exam Neck Exam: Normal Inspection. absent: Lymphadenopathy, Tenderness, Thyromegaly - Respiratory Exam Respiratory Exam: Clear to Ausculation Bilateral, NORMAL BREATHING PATTERN. absent: Decreased Breath Sounds, Prolonged Expiratory Phase, Rales, Rhonchi, Wheezes, Respiratory Distress, Stridor - Cardiovascular Exam Cardiovascular Exam: REGULAR RHYTHM, RRR, +S1, +S2. absent: Diastolic murmur, Gallop, JVD, Rubs - GI/Abdominal Exam GI & Abdominal Exam: Soft, Normal Bowel Sounds. absent: Distended, Rigid, Tenderness, Organomegaly, Rebound - Extremities Exam Extremities Exam: Normal Inspection (wrapped right knee and clean entry wound on right upper thigh from IVC filter placement. ) - Back Exam Back Exam: NORMAL INSPECTION. absent: rash noted, tenderness, vertebral tenderness - Neurological Exam Neurological Exam: Alert, Awake, Normal Gait, Oriented x3 - Psychiatric Exam Psychiatric exam: Normal Mood - Skin Skin Exam: Normal Color Assessment and Plan (1) Pulmonary embolism Assessment & Plan: IVC filter was placed 09/21/17. Continue Lovenox at a prophylactic dose. Status: Acute (2) Stool guaiac positive Status: Acute (3) Iron deficiency anemia Status: Chronic
--- NOTE | 2017-09-20 14:17 | CP.PCM.PN ---
Subjective - Date & Time of Evaluation Date of Evaluation: 09/20/17 Time of Evaluation: 14:15 - Subjective Subjective: Patient states knee continues to improve. Feeling well s/p IVC filter last night. Objective - Vital Signs/Intake and Output Vital Signs (last 24 hours): Temp Pulse Resp BP Pulse Ox 98.1 F 74 18 110/72 100 09/20/17 12:00 09/20/17 12:00 09/20/17 12:00 09/20/17 12:00 09/20/17 12:00 Intake and Output: 09/20/17 09/20/17 06:59 18:59 Intake Total 500 Output Total 350 Balance 150 - Medications Medications: Current Medications Acetaminophen (Tylenol 325mg Tab) 650 mg PO Q6 PRN PRN Reason: Pain, Mild (1-3) Last Admin: 09/20/17 11:43 Dose: 650 mg Acetylcysteine (Acetylcysteine 20%) 2 ml INH RBID [facility] Last Admin: 09/20/17 08:17 Dose: 2 ml Albuterol Sulfate (Albuterol 0.083% Inhal Kaila (2.5 Mg/3 Ml) Ud) 2.5 mg INH RQ6 PRN PRN Reason: Shortness of Breath Last Admin: 09/20/17 08:17 Dose: 2.5 mg Enoxaparin Sodium (Lovenox) 40 mg SC DAILY [facility] PRN Reason: Protocol Hydrochlorothiazide (Microzide) 12.5 mg PO 1800 [facility] Last Admin: 09/19/17 19:19 Dose: 12.5 mg Hydromorphone HCl (Dilaudid) 1 mg IVP Q4H PRN PRN Reason: Pain, severe (8-10) Last Admin: 09/18/17 08:35 Dose: 1 mg Iron Sucrose 100 mg/ Sodium (Chloride) 105 mls @ 105 mls/hr IVPB DAILY [facility] Last Admin: 09/20/17 09:43 Dose: 105 mls/hr Lactulose (Enulose) 20 gm PO Q4H PRN PRN Reason: Constipation Last Admin: 09/15/17 05:50 Dose: 20 gm Losartan Potassium (Cozaar) 100 mg PO DAILY [facility] Last Admin: 09/20/17 08:58 Dose: 100 mg Multivitamins/Minerals (Therapeutic-M Tab) 1 tab PO DAILY [facility] Last Admin: 09/20/17 08:58 Dose: 1 tab Ondansetron HCl (Zofran Tab) 4 mg PO Q6 PRN PRN Reason: Nausea/Vomiting Last Admin: 09/18/17 08:41 Dose: 4 mg Pantoprazole Sodium (Protonix Ec Tab) 40 mg PO DAILY [facility] Last Admin: 09/20/17 08:58 Dose: 40 mg - Labs Labs: 09/20/17 04:55 09/19/17 04:20 PT 13.1 Seconds (9.8-13.1) 09/19/17 04:20 INR 1.2 (0.9-1.2) 09/19/17 04:20 APTT 41.5 Seconds (25.6-37.1) H 09/19/17 04:20 - Extremities Exam Additional comments: right knee: dry. INcision intact, no erythema. +DP/PT Pulses calves soft NT neg homans Assessment and Plan (1) Degenerative joint disease of knee Assessment & Plan: s/p right TKR PE s/p IVCF for transfer back to TCU continue WBAT/PT/OT seen by Dr. Ricardo prior to my exam Status: Acute
--- NOTE | 2017-09-20 21:14 | PN ---
DATE: 09/20/2017 DAILY PROGRESS NOTE SUBJECTIVE: The patient is seen today, 09/20/2017. She is not in any cardiopulmonary distress. The patient is status post IVC filter placement yesterday. PHYSICAL EXAMINATION: VITAL SIGNS: Blood pressure is 105/69, temperature 98.6, respiratory rate 18, and pulse 77. HEENT: Pupils equal and reactive to light. Normal-appearing mucosa of the conjunctivae, oropharynx and membrane mucosa. NECK: Supple. No JVD. No carotid bruits. No lymph node. No thyromegaly. CHEST AND LUNGS: Bilateral symmetrical expansion. Good air exchange. No rales. No rhonchi. CARDIOVASCULAR SYSTEM: PMI not localized. S1 and S2. No additional sounds. ABDOMEN: Normoactive bowel sounds. No tenderness. No organomegaly. No masses. EXTREMITIES: No cyanosis. No clubbing. No edema. Right knee is surgically dressed. KNOCKDOWN MAN: Alert, awake, and oriented x3. No neurological deficit could be appreciated. ASSESSMENT: Status post right knee replacement, anemia of acute blood loss, bilateral pulmonary embolism. PLAN: Plan for another unit of blood transfusion today. The patient was switched by mechanical cad designer to prophylactic dose of Lovenox. Continue IV iron. After blood transfusion, the patient will be discharged to transitional care unit. Familia Strong MD
--- NOTE | 2017-09-21 06:45 | CP.PCM.PN ---
Subjective - Date & Time of Evaluation Date of Evaluation: 09/21/17 Time of Evaluation: 08:15 - Subjective Subjective: Patient seen and examined at bedside with Dr. Anders. Patient is sitting upright comfortably on the bed and reports that she has feels much better as compared to when she came in. She reports great appetite and 3 bowel movements, all formed stool, between yesterday and today. Knee pain s/p knee replacement is reported as a 2/10, described as a burning sensation, relieved when she puts ice on her knee. She denies chest pain, dyspnea, headache, nausea, vomiting, and diarrhea. Patient reports she is ready for rehabilitation. Objective - Vital Signs/Intake and Output Vital Signs (last 24 hours): Temp Pulse Resp BP Pulse Ox 98.5 F 73 16 119/66 98 09/21/17 05:23 09/21/17 05:23 09/21/17 05:23 09/21/17 05:23 09/21/17 05:23 Intake and Output: 09/20/17 09/21/17 18:59 06:59 Intake Total 377 Balance 377 - Medications Medications: Current Medications Acetaminophen (Tylenol 325mg Tab) 650 mg PO Q6 PRN PRN Reason: Pain, Mild (1-3) Last Admin: 09/21/17 03:00 Dose: 650 mg Acetylcysteine (Acetylcysteine 20%) 2 ml INH RBID [facility] Last Admin: 09/20/17 19:21 Dose: 2 ml Albuterol Sulfate (Albuterol 0.083% Inhal Kaila (2.5 Mg/3 Ml) Ud) 2.5 mg INH RQ6 PRN PRN Reason: Shortness of Breath Last Admin: 09/20/17 19:20 Dose: 2.5 mg Enoxaparin Sodium (Lovenox) 40 mg SC DAILY [facility] PRN Reason: Protocol Hydrochlorothiazide (Microzide) 12.5 mg PO 1800 [facility] Last Admin: 09/20/17 18:20 Dose: 12.5 mg Hydromorphone HCl (Dilaudid) 1 mg IVP Q4H PRN PRN Reason: Pain, severe (8-10) Last Admin: 09/18/17 08:35 Dose: 1 mg Iron Sucrose 100 mg/ Sodium (Chloride) 105 mls @ 105 mls/hr IVPB DAILY [facility] Last Admin: 09/20/17 09:43 Dose: 105 mls/hr Lactulose (Enulose) 20 gm PO Q4H PRN PRN Reason: Constipation Last Admin: 09/15/17 05:50 Dose: 20 gm Losartan Potassium (Cozaar) 100 mg PO DAILY [facility] Last Admin: 09/20/17 08:58 Dose: 100 mg Multivitamins/Minerals (Therapeutic-M Tab) 1 tab PO DAILY [facility] Last Admin: 09/20/17 08:58 Dose: 1 tab Ondansetron HCl (Zofran Tab) 4 mg PO Q6 PRN PRN Reason: Nausea/Vomiting Last Admin: 09/18/17 08:41 Dose: 4 mg Pantoprazole Sodium (Protonix Ec Tab) 40 mg PO DAILY [facility] Last Admin: 09/20/17 08:58 Dose: 40 mg Tramadol HCl (Ultram) 50 mg PO Q6 PRN PRN Reason: Pain, moderate (4-7) - Labs Labs: 09/20/17 04:55 09/19/17 04:20 PT 13.1 Seconds (9.8-13.1) 09/19/17 04:20 INR 1.2 (0.9-1.2) 09/19/17 04:20 APTT 41.5 Seconds (25.6-37.1) H 09/19/17 04:20 - Constitutional Appears: Well, Non-toxic, No Acute Distress - Head Exam Head Exam: NORMAL INSPECTION - Eye Exam Eye Exam: Normal appearance - ENT Exam ENT Exam: Mucous Membranes Moist - Neck Exam Neck Exam: Normal Inspection. absent: Lymphadenopathy, Tenderness, Thyromegaly - Respiratory Exam Respiratory Exam: Clear to Ausculation Bilateral, NORMAL BREATHING PATTERN. absent: Chest Wall Tenderness, Decreased Breath Sounds, Rales, Rhonchi, Wheezes , Respiratory Distress, Stridor - Cardiovascular Exam Cardiovascular Exam: REGULAR RHYTHM, RRR, +S1, +S2. absent: Clicks, Diastolic murmur, Gallop, JVD, Murmur - GI/Abdominal Exam GI & Abdominal Exam: Soft, Normal Bowel Sounds. absent: Distended, Guarding, Tenderness, Organomegaly, Rebound - Extremities Exam Extremities Exam: Normal Capillary Refill, Normal Inspection (Right knee wrapped with brianne bandage. +2 Dorsalis pedis pulse and tibial pulse bilaterally) . absent: Pedal Edema - Back Exam Back Exam: NORMAL INSPECTION - Neurological Exam Neurological Exam: Alert, Awake, Oriented x3 - Psychiatric Exam Psychiatric exam: Normal Affect, Normal Mood - Skin Skin Exam: Normal Color Assessment and Plan (1) Pulmonary embolism Assessment & Plan: Patient has IVC filter in place. Administer prophylactic dose of Lovenox. Status: Acute (2) Stool guaiac positive Status: Acute (3) Iron deficiency anemia Status: Chronic
[2017-09-21] MEDS: Albuterol 0.083% Inhal Sol (2.5 mg/3 mL) UD INH PRN (07:34)
[2017-09-21] MEDS: Acetylcysteine 20% Inhal Soln (4ml) INH SCH (07:34)
[2017-09-21] MEDS ORDERED: Enoxaparin 40 mg Syringe SC SCH (09:00)
[2017-09-21] MEDS: Multivitamin With Minerals Tab PO SCH (10:10)
[2017-09-21] MEDS: Pantoprazole 40 mg EC Tab PO SCH (10:10)
[2017-09-21 12:27] LABS: HEMOGLOBIN 9.4 g/dL (12.0-16.0); MEAN CELL VOLUME 94.3 fl (81.0-99.0); MEAN CORPUSCULAR HEMOGLOBIN 31.5 pg (27.0-31.0); MEAN CORPUSCULAR HGB CONC 33.4 g/dL (33.0-37.0); RBC 2.98 Mil/uL (3.80-5.20); RED CELL DISTRIBUTION WIDTH 15.6 % (11.5-14.5)
[2017-09-21 12:32] LABS: BLOOD UREA NITROGEN 11 mg/dl (7-17); CALCIUM 8.8 mg/dL (8.4-10.2); GFR AFRICAN-AMERICAN > 60; GFR NON-AFRICAN AMERICAN > 60
[2017-09-21 16:13] VITALS: BP 110/70; PULSE 77; RESP 18; TEMP 98.3; O2SAT 100
--- NOTE | 2017-09-21 22:07 | CP.PCM.PN ---
Subjective - Date & Time of Evaluation Date of Evaluation: 09/20/17 Time of Evaluation: 09:00 - Subjective Subjective: Pt sitting up in bed. Comfortable Pain rated 6/10. Denies chest pain, shortness of breath, headache, nausea and vomiting, fevers and chills, numbness and tingling, dizziness, calf pain. Objective - Vital Signs/Intake and Output Vital Signs (last 24 hours): Temp Pulse Resp BP Pulse Ox 98.3 F 77 18 110/70 100 09/21/17 16:12 09/21/17 16:12 09/21/17 16:12 09/21/17 16:12 09/21/17 16:12 - Labs Labs: 09/21/17 12:16 09/21/17 12:16 PT 13.1 Seconds (9.8-13.1) 09/19/17 04:20 INR 1.2 (0.9-1.2) 09/19/17 04:20 APTT 41.5 Seconds (25.6-37.1) H 09/19/17 04:20 - Extremities Exam Additional comments: right lower extremity: Knee:Surgical wound is clean dry and intact, renae in place, +1 swelling/ effusion, no redness or warmth Range of motion limited by pain 0-60 +5/5 motor strength hip flexion/exten knee flexion/extension, ankle dorsiflexion /plantarflexion, toes up and down Sensory intact L2-S1, DPN/TN/SPN 2+ dorsalis pedis pulse, brisk cap refill all toes Calves are soft and nontender bilateral Left lower extremity: No swelling/warmth/erythema, skin intact, no instability, range of motion at all joints without pain, Knee: + crepitance, limited range of motion 5-100 flexion, + varus deformity,+ medial joint TTP +5/5 motor strength hip flexion/exten knee flexion/extension, ankle dorsiflexion /plantarflexion, toes up and down Sensory intact L2-S1, DPN/TN/SPN 2+ dorsalis pedis pulse, brisk cap refill all toes Assessment and Plan - Assessment and Plan (Free Text) Assessment: 71-year-old female with long-standing right knee pain DX = R knee #1 DJD #2 flexion contracture #3 multiple loose bodies #4 varus deformity #5 synovitis s/p right knee total knee arthroplasty at [facility] on 09/07/17 Postop day #13 Developed a small bilateral pulmonary embolisms while in TCU, became symptomatic 09/13/17, transferred to ER and after evaluation transferred to telemetry at [facility] on 09/13/17 IVC filter placed 09/20/17 Plan: R knee: -Clinically, knee is progressing well but range of motion is limited and behind postop rehabilitation schedule -Range of motion is only 0-60 -Unfortunately, the medical developments in the postop period after her knee replacement have negatively impacted her postoperative rehabilitation course -it is essential, now that her medical status has stabilized that we focus on returning to the postop rehabilitation protocol after knee replacement. -Physical therapy = aggressive focus on regaining range of motion, strengthening/stretching/ambulation/gait training and pain modalities -Physical therapy should be done daily and supplemented with CPM use at least 4 hours per day -I personally spoke with the medical t they have assured me that this point in time, she is medically stable to return to aggressive physical therapy and rehabilitation program to ensure that overall she has a good outcome from the knee replacement -If there is any concern for her medical status then rehabilitation can be placed on hold -Pain controlled -Incentive arash -Weightbearing as tolerated without restrictions -DVT and PE prophylaxis/treatment per medical team Pulmonary embolism: -Starting from postoperative day #1, she was on prophylactic dosing of Lovenox and did not miss any dosing -[employer] SOFTWARE ENGINEER was called as she became symptomatic in TCU on 09/13/17, taken to ER at [facility], CT chest with PE protocol was positive for multiple bilateral small pulmonary embolisms -Ultrasound bilateral lower extremity negative for DVT -Initially once it was recognized that she had a PE, she was advanced to treatment dosing of Lovenox -Her hemoglobin levels dropped, guaiac stool positive, required transfusion while in telemetry -At that point in time an IVC filter was placed 09/20/17 -primary medical team at telemetry switched her dosing of Lovenox to prophylactic dosing after filter was placed -Treatment and care for medical issues under the care of the primary team -Plan for transfer back to TCU today or tomorrow -Please contact me if there are any questions, concerns, updates at [phone] Richard Ricardo MD Orthopedic Surgery
--- NOTE | 2017-09-22 16:39 | CARD ---
APPROVED REPORT Date of service: 09/19/2017 EKG Measurement Heart [id number] <Conclusion> Normal sinus rhythm Normal ECG
== END 2017-09-21 16:15 | DRG 167 ==
LOC: H.ER 17:59 → H.ERHOLD 21:50 → H.TEL 23:26
PROVIDERS: ADMIT Internal Medicine; ATTEND Internal Medicine
PROC: 30233N1 Transfusion of Nonautologous Red Blood Cells into Peripheral Vein, Percutaneous Approach (ICD-10-PCS; 2017-09-17)
PROC: 06H03DZ Insertion of Intraluminal Device into Inferior Vena Cava, Percutaneous Approach (ICD-10-PCS; principal; 2017-09-19 19:00)
DX: I26.99 Other pulmonary embolism without acute cor pulmonale (principal); D62 Acute posthemorrhagic anemia; J45.20 Mild intermittent asthma, uncomplicated; D50.8 Other iron deficiency anemias; Z96.651 Presence of right artificial knee joint; G47.33 Obstructive sleep apnea (adult) (pediatric); I10 Essential (primary) hypertension; M17.11 Unilateral primary osteoarthritis, right knee; Z87.01 Personal history of pneumonia (recurrent); Z98.84 Bariatric surgery status; Z86.010 Personal history of colon polyps; Z91.010 Allergy to peanuts

== ENCOUNTER 2017-09-21 15:41 | Inpatient (IN) | payer BC, OTHER ==
[2017-09-21 17:03] VITALS: BMI 30.2
[2017-09-21] MEDS: Acetylcysteine 20% Inhal Soln (4ml) INH SCH (19:31)
[2017-09-21] MEDS: Albuterol 0.083% Inhal Sol (2.5 mg/3 mL) UD INH PRN (19:32)
[2017-09-21] MEDS: Enoxaparin 40 mg Syringe SC SCH (20:53)
--- NOTE | 2017-09-21 21:30 | CP.PCM.PN ---
Subjective - Date & Time of Evaluation Date of Evaluation: 09/20/17 Time of Evaluation: 09:00 - Subjective Subjective: Pt sitting up in bed, comfortable. Dangling legs over the side of the bed, working on flexion of knees. Pain rated 5/10 R knee today. denies chest pain, shortness of breath, headaches, nausea and vomiting, fevers, chills, numbness and tingling, calf pain Objective - Vital Signs/Intake and Output Vital Signs (last 24 hours): Temp Pulse Resp BP Pulse Ox 98.2 F 74 20 107/63 100 09/21/17 18:33 09/21/17 18:33 09/21/17 18:33 09/21/17 18:33 09/21/17 18:33 - Medications Medications: Current Medications Acetaminophen (Tylenol 325mg Tab) 650 mg PO Q6 PRN PRN Reason: Pain, Mild (1-3) Acetylcysteine (Acetylcysteine 20%) 2 ml INH RBID [facility] Last Admin: 09/21/17 19:31 Dose: 2 ml Albuterol Sulfate (Albuterol 0.083% Inhal Kaila (2.5 Mg/3 Ml) Ud) 2.5 mg INH RQ6 PRN PRN Reason: Shortness of Breath Last Admin: 09/21/17 19:32 Dose: 2.5 mg Enoxaparin Sodium (Lovenox) 40 mg SC DAILY [facility] PRN Reason: Protocol Last Admin: 09/21/17 20:53 Dose: 40 mg Hydrochlorothiazide (Microzide) 12.5 mg PO 1800 [facility] Last Admin: 09/21/17 20:53 Dose: 12.5 mg Iron Sucrose 100 mg/ Sodium (Chloride) 105 mls @ 105 mls/hr IVPB DAILY [facility] Stop: 09/24/17 09:01 Lactulose (Enulose) 20 gm PO Q4H PRN PRN Reason: Constipation Losartan Potassium (Cozaar) 100 mg PO DAILY [facility] Multivitamins/Minerals (Therapeutic-M Tab) 1 tab PO DAILY [facility] Ondansetron HCl (Zofran Tab) 4 mg PO Q6 PRN PRN Reason: Nausea/Vomiting Pantoprazole Sodium (Protonix Ec Tab) 40 mg PO DAILY [facility] Tramadol HCl (Ultram) 50 mg PO Q6 PRN PRN Reason: Pain, moderate (4-7) Last Admin: 09/21/17 20:51 Dose: 50 mg - Extremities Exam Additional comments: right lower extremity: Knee:Surgical wound is clean dry and intact, renae in place, +1 swelling/ effusion, no redness or warmth Range of motion limited by pain 0-60 +5/5 motor strength hip flexion/exten knee flexion/extension, ankle dorsiflexion /plantarflexion, toes up and down Sensory intact L2-S1, DPN/TN/SPN 2+ dorsalis pedis pulse, brisk cap refill all toes Calves are soft and nontender bilateral Left lower extremity: No swelling/warmth/erythema, skin intact, no instability, range of motion at all joints without pain, Knee: + crepitance, limited range of motion 5-100 flexion, + varus deformity,+ medial joint TTP +5/5 motor strength hip flexion/exten knee flexion/extension, ankle dorsiflexion /plantarflexion, toes up and down Sensory intact L2-S1, DPN/TN/SPN 2+ dorsalis pedis pulse, brisk cap refill all toes Assessment and Plan (1) Primary osteoarthritis of right knee Assessment & Plan: 71-year-old female with long-standing right knee pain DX = R knee #1 DJD #2 flexion contracture #3 multiple loose bodies #4 varus deformity #5 synovitis s/p right knee total knee arthroplasty at [facility] on 09/07/17 Postop day #14 Developed a small bilateral pulmonary embolisms Status: Acute (2) Degenerative joint disease of knee Status: Acute
[2017-09-22] MEDS: Albuterol 0.083% Inhal Sol (2.5 mg/3 mL) UD INH PRN (07:47)
[2017-09-22] MEDS: Acetylcysteine 20% Inhal Soln (4ml) INH SCH ×2 (07:48→19:14)
[2017-09-22] MEDS: Enoxaparin 40 mg Syringe SC SCH (09:01)
[2017-09-22] MEDS: Pantoprazole 40 mg EC Tab PO SCH (09:02)
[2017-09-22] MEDS: Multivitamin With Minerals Tab PO SCH (09:02)
--- NOTE | 2017-09-22 10:54 | CP.PCM.PN ---
Subjective - Date & Time of Evaluation Date of Evaluation: 09/22/17 Time of Evaluation: 10:52 - Subjective Subjective: Patient states pain is controlled. She feels a little dizzy after her breathing treatment. Patient is doing exercises in bed including quad sets. Objective - Vital Signs/Intake and Output Vital Signs (last 24 hours): Temp Pulse Resp BP Pulse Ox 98.1 F 62 20 121/70 99 09/22/17 08:27 09/22/17 09:02 09/22/17 08:27 09/22/17 09:02 09/22/17 08:27 - Medications Medications: Current Medications Acetaminophen (Tylenol 325mg Tab) 650 mg PO Q6 PRN PRN Reason: Pain, Mild (1-3) Acetylcysteine (Acetylcysteine 20%) 2 ml INH RBID [facility] Last Admin: 09/22/17 07:48 Dose: 2 ml Albuterol Sulfate (Albuterol 0.083% Inhal Kaila (2.5 Mg/3 Ml) Ud) 2.5 mg INH RQ6 PRN PRN Reason: Shortness of Breath Last Admin: 09/22/17 07:47 Dose: 2.5 mg Enoxaparin Sodium (Lovenox) 40 mg SC DAILY [facility] PRN Reason: Protocol Last Admin: 09/22/17 09:01 Dose: 40 mg Hydrochlorothiazide (Microzide) 12.5 mg PO 1800 [facility] Last Admin: 09/21/17 20:53 Dose: 12.5 mg Iron Sucrose 100 mg/ Sodium (Chloride) 105 mls @ 105 mls/hr IVPB DAILY [facility] Stop: 09/24/17 09:01 Lactulose (Enulose) 20 gm PO Q4H PRN PRN Reason: Constipation Losartan Potassium (Cozaar) 100 mg PO DAILY [facility] Last Admin: 09/22/17 09:02 Dose: 100 mg Multivitamins/Minerals (Therapeutic-M Tab) 1 tab PO DAILY [facility] Last Admin: 09/22/17 09:02 Dose: 1 tab Ondansetron HCl (Zofran Tab) 4 mg PO Q6 PRN PRN Reason: Nausea/Vomiting Pantoprazole Sodium (Protonix Ec Tab) 40 mg PO DAILY [facility] Last Admin: 09/22/17 09:02 Dose: 40 mg Tramadol HCl (Ultram) 50 mg PO Q6 PRN PRN Reason: Pain, moderate (4-7) Last Admin: 09/22/17 09:01 Dose: 50 mg - Extremities Exam Additional comments: Right LE: swelling to calf, patient wears CLARISSE stockings during day. incisio intact, dry, no erythema. Calves soft NT neg homans Assessment and Plan (1) Primary osteoarthritis of right knee Assessment & Plan: PT/OT CPM encourage ROM/OOB elevate leg while in bed and CLARISSE stockings s/p IVCF cont lovenox d/w Dr. Ricardo, agrees with above Status: Acute
[2017-09-23 06:36] LABS: MEAN CELL VOLUME 95.5 fl (81.0-99.0); MEAN CORPUSCULAR HEMOGLOBIN 32.5 pg (27.0-31.0); RBC 2.76 Mil/uL (3.80-5.20); RED CELL DISTRIBUTION WIDTH 15.8 % (11.5-14.5); WHITE BLOOD COUNT 6.4 K/uL (4.8-10.8)
[2017-09-23 06:53] LABS: ALBUMIN 3.2 g/dL (3.5-5.0); ALT/SGPT 34 U/L (9-52); AST/SGOT 20 U/L (14-36); BLOOD UREA NITROGEN 14 mg/dl (7-17); CALCIUM 8.7 mg/dL (8.4-10.2); GFR AFRICAN-AMERICAN > 60; GFR NON-AFRICAN AMERICAN > 60
[2017-09-23] MEDS: Enoxaparin 40 mg Syringe SC SCH (09:01)
[2017-09-23] MEDS: Pantoprazole 40 mg EC Tab PO SCH (09:02)
[2017-09-23] MEDS: Multivitamin With Minerals Tab PO SCH (09:02)
--- NOTE | 2017-09-23 12:34 | CP.PCM.CON ---
History of Present Illness - History of Present Illness History of Present Illness: Dr Bean PMR consultation on Jo Ann Fowler born 12/31/1944 who has been re- admitted to the TCU after having a PE. IVC filter has been placed. She is now back and ready to continue her therapies Review of Systems - Constitutional Constitutional: absent: Anorexia, Chills - EENT Eyes: absent: Change in Vision Nose/Mouth/Throat: absent: Nasal Congestion - Cardiovascular Cardiovascular: absent: Chest Pain - Respiratory Respiratory: absent: Dyspnea - Gastrointestinal Gastrointestinal: absent: Abdominal Pain, Belching - Neurological Neurological: absent: Abnormal Movements, Numbness Past Patient History - Tetanus Immunizations Tetanus Immunization: Unknown - Past Medical History & Family History Past Medical History?: Yes - Past Social History Smoking Status: Never Smoked Drugs: Denies Home Situation {Lives}: With Family - CARDIAC Hx Hypertension: Yes - PULMONARY Hx Asthma: Yes (sleep apnea) Hx Pneumonia: Yes (" IN THE 1970'S") - NEUROLOGICAL Hx Neurological Disorder: No - HEENT Hx HEENT Problems: No - RENAL Hx Chronic Kidney Disease: No - ENDOCRINE/METABOLIC Hx Endocrine Disorders: No - HEMATOLOGICAL/ONCOLOGICAL Hx Anemia: Yes (On supplemental iron prior to admission) - INTEGUMENTARY Hx Dermatological Problems: No - MUSCULOSKELETAL/RHEUMATOLOGICAL Hx Arthritis: Yes Hx Falls: No Hx Fractures: Yes (HX: TOES) - GASTROINTESTINAL Hx Constipation: Yes (In transitional care unit) Other/Comment: Colonoscopy with polypectomy - GENITOURINARY/GYNECOLOGICAL Hx Genitourinary Disorders: No - PSYCHIATRIC Hx Depression: Yes Hx Substance Use: No - SURGICAL HISTORY Hx Gastric Bypass Surgery: Yes Hx Joint Replacement: Yes (09/07/2017 right TKR) Hx Tonsillectomy: Yes Other/Comment: Bunionectomy, reduction mammoplasty 1999 - ANESTHESIA Hx Anesthesia: Yes Hx Anesthesia Reactions: No Hx Malignant Hyperthermia: No Meds Allergies/Adverse Reactions: Allergies Allergy/AdvReac Type Severity Reaction Status Date / Time peanut Allergy Intermediate SHORTNESS Verified 09/21/17 17:02 OF BREATH - Medications Medications: Current Medications Acetaminophen (Tylenol 325mg Tab) 650 mg PO Q6 PRN PRN Reason: Pain, Mild (1-3) Acetylcysteine (Acetylcysteine 20%) 2 ml INH RBID MARIA C Last Admin: 09/22/17 19:14 Dose: Not Given Albuterol Sulfate (Albuterol 0.083% Inhal Kaila (2.5 Mg/3 Ml) Ud) 2.5 mg INH RQ6 PRN PRN Reason: Shortness of Breath Last Admin: 09/22/17 07:47 Dose: 2.5 mg Enoxaparin Sodium (Lovenox) 40 mg SC DAILY MARIA C PRN Reason: Protocol Last Admin: 09/23/17 09:01 Dose: 40 mg Hydrochlorothiazide (Microzide) 12.5 mg PO 1800 [facility] Last Admin: 09/22/17 18:00 Dose: 12.5 mg Iron Sucrose 100 mg/ Sodium (Chloride) 105 mls @ 105 mls/hr IVPB DAILY [facility] Stop: 09/24/17 09:01 Last Admin: 09/22/17 15:54 Dose: 105 mls/hr Lactulose (Enulose) 20 gm PO Q4H PRN PRN Reason: Constipation Losartan Potassium (Cozaar) 100 mg PO DAILY [facility] Last Admin: 09/23/17 09:01 Dose: 100 mg Multivitamins/Minerals (Therapeutic-M Tab) 1 tab PO DAILY [facility] Last Admin: 09/23/17 09:02 Dose: 1 tab Ondansetron HCl (Zofran Tab) 4 mg PO Q6 PRN PRN Reason: Nausea/Vomiting Last Admin: 09/22/17 15:53 Dose: 4 mg Pantoprazole Sodium (Protonix Ec Tab) 40 mg PO DAILY [facility] Last Admin: 09/23/17 09:02 Dose: 40 mg Tramadol HCl (Ultram) 50 mg PO Q6 PRN PRN Reason: Pain, moderate (4-7) Last Admin: 09/23/17 09:06 Dose: 50 mg Physical Exam - Constitutional Appears: Well, Non-toxic, No Acute Distress - Head Exam Head Exam: ATRAUMATIC, NORMAL INSPECTION, NORMOCEPHALIC - Eye Exam Eye Exam: EOMI - ENT Exam ENT Exam: Mucous Membranes Moist - Respiratory Exam Respiratory Exam: NORMAL BREATHING PATTERN - Cardiovascular Exam Cardiovascular Exam: REGULAR RHYTHM - GI/Abdominal Exam GI & Abdominal Exam: Normal Bowel Sounds - Extremities Exam Extremities exam: Negative for: full ROM - Neurological Exam Neurological exam: Alert, CN II-XII Intact, Oriented x3 - Psychiatric Exam Psychiatric exam: Normal Affect, Normal Mood Results - Vital Signs Recent Vital Signs: Last Vital Signs Temp 97.9 F 09/23/17 08:05 Pulse 74 09/23/17 09:01 Resp 20 09/23/17 08:05 BP 114/64 09/23/17 09:01 Pulse Ox 100 09/23/17 08:05 - Labs Result Diagrams: 09/23/17 06:21 09/23/17 06:21 Labs: Laboratory Results - last 24 hr 09/23/17 09/23/17 06:21 06:21 WBC 6.4 RBC 2.76 L Hgb 9.0 L Hct 26.4 L MCV 95.5 MCH 32.5 H MCHC 34.0 RDW 15.8 H Plt Count 448 H Sodium 137 Potassium 3.9 Chloride 99 Carbon Dioxide 32 H Anion Gap 10 BUN 14 Creatinine 0.8 Est GFR ( Amer) > 60 Est GFR (Non-Af Amer) > 60 Random Glucose 91 Calcium 8.7 Total Bilirubin 0.5 AST 20 ALT 34 Alkaline Phosphatase 66 Total Protein 6.4 Albumin 3.2 L Globulin 3.2 Albumin/Globulin Ratio 1.0 Assessment & Plan - Assessment and Plan (Free Text) Assessment: s/p right TKR complicated with PE but + IVC and stable now resuming therapies PT/OT to continue to help increase functional independence Pain: controlled Vascular: recent PE, had IVC as above GI: No evidence of constipation or diarrhea Patient continues to be an excellent TCU rehabilitation candidate and will have continued focused PT, OT and recreational therapy to help facilitate a safe and appropriate d/c plan
--- NOTE | 2017-09-23 14:27 | CP.PCM.PN ---
Subjective - Date & Time of Evaluation Date of Evaluation: 09/23/17 Time of Evaluation: 14:25 - Subjective Subjective: Patient states pain is well controlled. Denies CP/SOB/dizziness. Objective - Vital Signs/Intake and Output Vital Signs (last 24 hours): Temp Pulse Resp BP Pulse Ox 97.9 F 74 20 114/64 100 09/23/17 08:05 09/23/17 09:01 09/23/17 08:05 09/23/17 09:01 09/23/17 08:05 Intake and Output: 09/23/17 09/23/17 06:59 18:59 Intake Total 100 Balance 100 - Medications Medications: Current Medications Acetaminophen (Tylenol 325mg Tab) 650 mg PO Q6 PRN PRN Reason: Pain, Mild (1-3) Acetylcysteine (Acetylcysteine 20%) 2 ml INH RBID [facility] Last Admin: 09/22/17 19:14 Dose: Not Given Albuterol Sulfate (Albuterol 0.083% Inhal Kaila (2.5 Mg/3 Ml) Ud) 2.5 mg INH RQ6 PRN PRN Reason: Shortness of Breath Last Admin: 09/22/17 07:47 Dose: 2.5 mg Enoxaparin Sodium (Lovenox) 40 mg SC DAILY MAR[facility] C PRN Reason: Protocol Last Admin: 09/23/17 09:01 Dose: 40 mg Hydrochlorothiazide (Microzide) 12.5 mg PO 1800 [facility] Last Admin: 09/22/17 18:00 Dose: 12.5 mg Iron Sucrose 100 mg/ Sodium (Chloride) 105 mls @ 105 mls/hr IVPB DAILY [facility] Stop: 09/24/17 09:01 Last Admin: 09/23/17 12:44 Dose: 105 mls/hr Lactulose (Enulose) 20 gm PO Q4H PRN PRN Reason: Constipation Losartan Potassium (Cozaar) 100 mg PO DAILY [facility] Last Admin: 09/23/17 09:01 Dose: 100 mg Multivitamins/Minerals (Therapeutic-M Tab) 1 tab PO DAILY [facility] Last Admin: 09/23/17 09:02 Dose: 1 tab Ondansetron HCl (Zofran Tab) 4 mg PO Q6 PRN PRN Reason: Nausea/Vomiting Last Admin: 09/22/17 15:53 Dose: 4 mg Pantoprazole Sodium (Protonix Ec Tab) 40 mg PO DAILY [facility] Last Admin: 09/23/17 09:02 Dose: 40 mg Tramadol HCl (Ultram) 50 mg PO Q6 PRN PRN Reason: Pain, moderate (4-7) Last Admin: 09/23/17 09:06 Dose: 50 mg - Labs Labs: 09/23/17 06:21 09/23/17 06:21 - Extremities Exam Additional comments: Right knee: mild swelling as expected, incision intact, dry, improving ROM, still needs improvement. Calves soft NT neghomans, sensation intact, +ROM Assessment and Plan (1) Primary osteoarthritis of right knee Assessment & Plan: POD#16 s/p right TKR PT/OT, encourage ROM, CPM s/p IVCF orthopedically stable d/w Dr. Rivera, agrees with above Status: Acute
[2017-09-23] MEDS: Acetylcysteine 20% Inhal Soln (4ml) INH SCH (19:25)
[2017-09-24] MEDS: Acetylcysteine 20% Inhal Soln (4ml) INH SCH (07:42)
[2017-09-24] MEDS: Enoxaparin 40 mg Syringe SC SCH (08:18)
[2017-09-24] MEDS: Pantoprazole 40 mg EC Tab PO SCH (08:20)
[2017-09-24] MEDS: Multivitamin With Minerals Tab PO SCH (08:20)
--- NOTE | 2017-09-25 07:20 | HP ---
HISTORY OF PRESENT ILLNESS: This is a 71-year-old female with history of right total knee replacement, was admitted to Transitional Care Unit for deconditioning and physical therapy. The patient was recently diagnosed with bilateral pulmonary embolism, and she had an IVC filter placement. The patient denied to have any shortness of breath or chest pain or cough. There is swelling of the right lower extremity at the site of the surgery. Other review of systems is negative. ALLERGIES: POSITIVE FOR PEANUTS. MEDICATIONS: Reviewed as per MAR. SOCIAL HISTORY: No history of smoking, EtOH, or substance abuse. PAST MEDICAL HISTORY: Hypertension, osteoarthritis, status post right total knee replacement, anemia, multifactorial. FAMILY HISTORY: Noncontributory. PHYSICAL EXAMINATION: GENERAL: The patient is in bed, comfortable, not in any cardiopulmonary distress. VITAL SIGNS: Blood pressure 121/60, temperature 98.2, respiratory rate 20, and pulse 82. HEENT: Pupils equal, reactive to light. Normal-appearing mucosa of the conjunctivae, oropharynx, and nasal membrane mucosa. NECK: Supple. No JVD. No carotid bruit. No lymph node. No thyromegaly. CHEST AND LUNGS: Bilateral symmetrical expansion. Good air exchange. No rales. No rhonchi. CARDIOVASCULAR SYSTEM: PMI not localized. S1, S2. No additional sounds. ABDOMEN: Normoactive bowel sounds. No tenderness. No organomegaly. No masses. EXTREMITIES: Positive edema of right lower extremity. PROGRAM ATTENDANT: Alert, awake, oriented x2. No neurological deficit could be appreciated. ASSESSMENT: Status post right total knee replacement, status post inferior vena cava filter placement, bilateral pulmonary embolism, hypertension, and osteoarthritis. PLAN: Continue current medications and physical therapy, and we will give DuoNeb nebulizer treatment as needed. Familia Strong MD
[2017-09-25] MEDS: Enoxaparin 40 mg Syringe SC SCH (08:22)
[2017-09-25] MEDS: Multivitamin With Minerals Tab PO SCH (08:22)
[2017-09-25] MEDS: Pantoprazole 40 mg EC Tab PO SCH (08:22)
[2017-09-26] MEDS: Enoxaparin 40 mg Syringe SC SCH (08:24)
[2017-09-26] MEDS: Pantoprazole 40 mg EC Tab PO SCH (08:25)
[2017-09-26] MEDS: Multivitamin With Minerals Tab PO SCH (08:25)
--- NOTE | 2017-09-26 09:33 | CP.PCM.PN ---
Subjective - Date & Time of Evaluation Date of Evaluation: 09/26/17 Time of Evaluation: 09:00 - Subjective Subjective: Patient seen and examined OOB to chair while in PT session. Pain is well controlled. No new complaints. Denies CP/SOB/N/V/D. Objective - Vital Signs/Intake and Output Vital Signs (last 24 hours): Temp Pulse Resp BP Pulse Ox 98.2 F 80 20 115/70 100 09/26/17 08:19 09/26/17 08:24 09/26/17 08:19 09/26/17 08:24 09/26/17 08:19 - Medications Medications: Current Medications Acetaminophen (Tylenol 325mg Tab) 650 mg PO Q6 PRN PRN Reason: Pain, Mild (1-3) Acetylcysteine (Acetylcysteine 20%) 2 ml INH RBID PRN PRN Reason: Shortness of Breath Albuterol Sulfate (Albuterol 0.083% Inhal Kaila (2.5 Mg/3 Ml) Ud) 2.5 mg INH RQ6 PRN PRN Reason: Shortness of Breath Last Admin: 09/22/17 07:47 Dose: 2.5 mg Ascorbic Acid (Vitamin C 500 Mg Tab) 500 mg PO DAILY [facility] Last Admin: 09/26/17 08:25 Dose: 500 mg Bisacodyl (Dulcolax) 10 mg [place] DAILY PRN PRN Reason: Constipation Last Admin: 09/25/17 18:10 Dose: 10 mg Enoxaparin Sodium (Lovenox) 40 mg SC DAILY [facility] C PRN Reason: Protocol Last Admin: 09/26/17 08:24 Dose: 40 mg Ferrous Sulfate (Feosol) 325 mg PO BID [facility] Last Admin: 09/26/17 08:24 Dose: 325 mg Hydrochlorothiazide (Microzide) 12.5 mg PO 1800 [facility] Last Admin: 09/25/17 18:12 Dose: 12.5 mg Lactulose (Enulose) 20 gm PO Q4H PRN PRN Reason: Constipation Last Admin: 09/25/17 18:14 Dose: 20 gm Losartan Potassium (Cozaar) 100 mg PO DAILY [facility] Last Admin: 09/26/17 08:24 Dose: 100 mg Multivitamins/Minerals (Therapeutic-M Tab) 1 tab PO DAILY [facility] Last Admin: 09/26/17 08:25 Dose: 1 tab Ondansetron HCl (Zofran Tab) 4 mg PO Q6 PRN PRN Reason: Nausea/Vomiting Last Admin: 09/22/17 15:53 Dose: 4 mg Pantoprazole Sodium (Protonix Ec Tab) 40 mg PO DAILY [facility] Last Admin: 09/26/17 08:25 Dose: 40 mg Tramadol HCl (Ultram) 50 mg PO Q6 PRN PRN Reason: Pain, moderate (4-7) Last Admin: 09/25/17 20:16 Dose: 50 mg - Labs Labs: 09/23/17 06:21 09/23/17 06:21 - Extremities Exam Additional comments: R knee: mild swelling Dressings CDI, wound CDI with renae ROM 0-80 deg sensation intact SP/DP/TN motor intact EHL/FHL/TA/G pedal pulses intact comps soft NT Assessment and Plan (1) Status post total right knee replacement Assessment & Plan: POD#19 s/p R TKA, b/l PE -medical management -PT/OT WBAT -CPM, knee imm as per order -orthopedically stable -d/w Dr. Ricardo in agreement Status: Acute
[2017-09-26] MEDS: Albuterol 0.083% Inhal Sol (2.5 mg/3 mL) UD INH PRN ×4 (10:25→22:43)
[2017-09-26] MEDS ORDERED: Bismuth Subsalicylate 262 mg Chew Tab PO PRN (10:33)
[2017-09-26] MEDS ORDERED: Enoxaparin 60 mg Syringe SC STA (10:35)
[2017-09-26] MEDS: Acetylcysteine 20% Inhal Soln (4ml) INH PRN ×2 (10:50→22:43)
[2017-09-26 10:51] LABS: BASO % 0.7 % (0.0-2.0); EOS # 0.1 K/uL (0.0-0.7); EOS % 1.9 % (0.0-4.0); HEMOGLOBIN 10.9 g/dL (12.0-16.0); LYMPH # 1.8 K/uL (1.0-4.3); LYMPH % 27.4 % (20.0-40.0); MEAN CELL VOLUME 94.5 fl (81.0-99.0); MEAN CORPUSCULAR HEMOGLOBIN 31.8 pg (27.0-31.0); MEAN CORPUSCULAR HGB CONC 33.7 g/dL (33.0-37.0); MONO # 0.6 K/uL (0.0-0.8); MONO % 9.9 % (0.0-10.0); NEUT # 3.9 K/uL (1.8-7.0); NEUT % 60.1 % (50.0-75.0); NRBC % 0.2 % (0.0-0.0); RBC 3.41 Mil/uL (3.80-5.20); RED CELL DISTRIBUTION WIDTH 15.4 % (11.5-14.5); WHITE BLOOD COUNT 6.5 K/uL (4.8-10.8)
--- NOTE | 2017-09-26 10:53 | PCM.RRT ---
LAST DIPPER Nurse Assessment - Situation LAST DIPPER Reason for Call: Chest Pain, Respiratory Distress - IV IV Inserted during LAST DIPPER?: No - Respiratory Oxygen Delivery Method: Nasal Cannula I.Reason for LAST DIPPER - A) Acute Change in Patient: (Select all that apply): Staff member or family is worried about patient Subjective: 71 Y/O female with H/O knee replacement, PE and S/P IVC filter complains of chest pain and SOB while doing physical therapy. LAST DIPPER was called. Pt put on O2 and nasal cannula. Blood was collected for CBC, Troponin x 3, and given therapeutic dose of Lovenox 50 mg. Patient is also given peoptobismol and dulcolex for GI complains(constipation and acid reflux). EKG done showed no acute change from previous EKG. Pt to remain in TCU. Continue Physical therapy. Will repeat vital signs in 30 mins. F/U on troponin. - Neurological Status (Select all that apply): Alert, Responsive, Oriented, Verbal, Follows Commands - Respiratory Oxygen Delivery Method: Nasal Cannula @L/min - Constitutional Appears: Non-toxic - Head Head Exam: ATRAUMATIC, NORMAL INSPECTION, NORMOCEPHALIC - Respiratory Exam Respiratory Exam: Clear to Ausculation Bilateral. absent: Accessory Muscle Use , Decreased Breath Sounds, Rales, Rhonchi, Wheezes, Respiratory Distress - Cardiovascular Exam Cardiovascular Exam: REGULAR RHYTHM. absent: Tachycardia - Neurological Exam Neurological Exam: Alert, Awake, Oriented x3 - Extremities Exam Extremities Exam: absent: Calf Tenderness, Pedal Edema Plan - Assessment of Findings&Treatment Plan 71 Y/O female with H/O knee replacement, PE and S/P IVC filter complains of chest pain and SOB while doing physical therapy. LAST DIPPER was called. Monitor Vitals and Troponins, Pt to remain in TCU for physical therapy. Monitor for acute changes.
[2017-09-26] MEDS: Bisacodyl 5mg EC Tab PO SCH (12:30)
--- NOTE | 2017-09-26 14:20 | CARD ---
APPROVED REPORT Date of service: 09/26/2017 EKG Measurement Heart [id number] <Conclusion> Normal sinus rhythm Low voltage QRS Borderline ECG
--- NOTE | 2017-09-26 20:07 | CP.PCM.PN ---
Subjective - Date & Time of Evaluation Date of Evaluation: 09/26/17 Time of Evaluation: 20:06 - Subjective Subjective: Patient seen in the room with family present pain is controlled had some chest pain with dizziness today, belching multiple times as we speak and it was thought to be GERD related will continue current care therapy held for the afternoon Objective - Vital Signs/Intake and Output Vital Signs (last 24 hours): Temp Pulse Resp BP Pulse Ox 98.4 F 76 20 101/57 L 100 09/26/17 19:44 09/26/17 19:44 09/26/17 19:44 09/26/17 19:44 09/26/17 19:44 - Medications Medications: Current Medications Acetaminophen (Tylenol 325mg Tab) 650 mg PO Q6 PRN PRN Reason: Pain, Mild (1-3) Acetylcysteine (Acetylcysteine 20%) 2 ml INH RBID PRN PRN Reason: Shortness of Breath Last Admin: 09/26/17 10:50 Dose: 2 ml Albuterol Sulfate (Albuterol 0.083% Inhal Kaila (2.5 Mg/3 Ml) Ud) 2.5 mg INH RQ6 PRN PRN Reason: Shortness of Breath Last Admin: 09/26/17 10:51 Dose: 2.5 mg Ascorbic Acid (Vitamin C 500 Mg Tab) 500 mg PO DAILY [facility] Last Admin: 09/26/17 08:25 Dose: 500 mg Bisacodyl (Dulcolax) 10 mg [place] DAILY PRN PRN Reason: Constipation Last Admin: 09/25/17 18:10 Dose: 10 mg Bisacodyl (Dulcolax) 5 mg PO DAILY [facility] Last Admin: 09/26/17 12:30 Dose: Not Given Bismuth Subsalicylate (Pepto Bismol) 262 mg PO Q1 PRN PRN Reason: Heartburn Last Admin: 09/26/17 12:30 Dose: 262 mg Enoxaparin Sodium (Lovenox) 40 mg SC DAILY [facility] PRN Reason: Protocol Last Admin: 09/26/17 08:24 Dose: 40 mg Ferrous Sulfate (Feosol) 325 mg PO BID [facility] Last Admin: 09/26/17 17:04 Dose: 325 mg Hydrochlorothiazide (Microzide) 12.5 mg PO 1800 [facility] Last Admin: 09/26/17 17:04 Dose: 12.5 mg Lactulose (Enulose) 20 gm PO Q4H PRN PRN Reason: Constipation Last Admin: 09/25/17 18:14 Dose: 20 gm Losartan Potassium (Cozaar) 100 mg PO DAILY [facility] Last Admin: 09/26/17 08:24 Dose: 100 mg Multivitamins/Minerals (Therapeutic-M Tab) 1 tab PO DAILY [facility] Last Admin: 09/26/17 08:25 Dose: 1 tab Ondansetron HCl (Zofran Tab) 4 mg PO Q6 PRN PRN Reason: Nausea/Vomiting Last Admin: 09/22/17 15:53 Dose: 4 mg Pantoprazole Sodium (Protonix Ec Tab) 40 mg PO BID [facility] Sucralfate (Carafate Oral Susp) 1 gm PO TID [facility] Tramadol HCl (Ultram) 50 mg PO Q6 PRN PRN Reason: Pain, moderate (4-7) Last Admin: 09/26/17 10:11 Dose: 50 mg - Labs Labs: 09/26/17 10:43 09/23/17 06:21
--- NOTE | 2017-09-26 23:51 | PN ---
DATE: 09/26/2017 DAILY PROGRESS NOTE SUBJECTIVE: The patient is seen today, 09/26/2017. She is not in any cardiopulmonary distress. The patient was complaining of acid reflux with chest pressure. PHYSICAL EXAMINATION: VITAL SIGNS: Blood pressure 107/56, temperature 98.4, respiratory rate 20 and pulse 73. HEENT: Pupils equal and reactive to light. Normal-appearing mucosa of the conjunctivae, oropharynx and nasal membrane mucosa. NECK: Supple. No JVD. No carotid bruit. No lymph node. No thyromegaly. CHEST AND LUNGS: Bilateral symmetrical expansion. Good air exchange. No rales. No rhonchi. CARDIOVASCULAR SYSTEM: PMI not localized. S1, S2. No additional sounds. ABDOMEN: Normoactive bowel sounds. No tenderness. No organomegaly. No masses. EXTREMITIES: No cyanosis, no clubbing, no edema. 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 No neurological deficit could be appreciated. ASSESSMENT: 1. Symptomatic gastroesophageal reflux disease. 2. Status post right total knee replacement. 3. Bilateral pulmonary embolism. 4. Anemia of acute blood loss. PLAN: Continue DVT prophylaxis. IVC filter ready placed. We will start the patient on both Protonix and sucralfate. We will give the patient albuterol and Mucomyst as needed. Familia Strong MD
[2017-09-27 06:47] LABS: BASO % 0.5 % (0.0-2.0); EOS # 0.1 K/uL (0.0-0.7); HEMOGLOBIN 9.6 g/dL (12.0-16.0); LYMPH # 1.8 K/uL (1.0-4.3); MEAN CELL VOLUME 93.9 fl (81.0-99.0); MEAN CORPUSCULAR HEMOGLOBIN 32.4 pg (27.0-31.0); MEAN CORPUSCULAR HGB CONC 34.5 g/dL (33.0-37.0); MONO # 0.6 K/uL (0.0-0.8); MONO % 10.6 % (0.0-10.0); NEUT # 2.9 K/uL (1.8-7.0); NEUT % 53.9 % (50.0-75.0); NRBC % 0.1 % (0.0-0.0); RBC 2.95 Mil/uL (3.80-5.20); RED CELL DISTRIBUTION WIDTH 15.4 % (11.5-14.5); WHITE BLOOD COUNT 5.3 K/uL (4.8-10.8)
[2017-09-27] MEDS: Sucralfate 1 gm/10 ml Oral Susp UD PO SCH ×3 (08:37→16:36)
[2017-09-27] MEDS: Pantoprazole 40 mg EC Tab PO SCH ×2 (09:26→16:35)
[2017-09-27] MEDS: Multivitamin With Minerals Tab PO SCH (09:26)
[2017-09-27] MEDS: Bisacodyl 5mg EC Tab PO SCH (09:27)
[2017-09-27] MEDS: Enoxaparin 40 mg Syringe SC SCH (09:28)
--- NOTE | 2017-09-28 04:15 | PN ---
DATE: 09/27/2017 DAILY PROGRESS NOTE SUBJECTIVE: She is seen better with no more pressure-like symptoms or reflux symptoms in the chest area. PHYSICAL EXAMINATION: VITAL SIGNS: Blood pressure 109/57, temperature 97.9, respiratory rate 20, and pulse 68. HEENT: Pupils equal and reactive to light. Normal-appearing mucosa of the conjunctivae, oropharynx, and nasal membrane mucosa. NECK: Supple. No JVD. No carotid bruit. No lymph node. No thyromegaly. CHEST AND LUNGS: Bilateral symmetrical expansion. Good air exchange. No rales. No rhonchi. CARDIOVASCULAR SYSTEM: PMI not localized. S1, S2. No additional sounds. ABDOMEN: Normoactive bowel sounds. No tenderness. No organomegaly. No masses. EXTREMITIES: No cyanosis, no clubbing, no edema. LOOM FIXER: Alert, awake, oriented x3. No neurological deficit could be appreciated. ASSESSMENT: Status post total knee replacement, hypertension, type 2 diabetes mellitus. Continue with physical therapy and occupational therapy. Mandy MD Tae
[2017-09-28] MEDS: Sucralfate 1 gm/10 ml Oral Susp UD PO SCH ×3 (08:04→16:17)
[2017-09-28] MEDS: Multivitamin With Minerals Tab PO SCH (09:38)
[2017-09-28] MEDS: Pantoprazole 40 mg EC Tab PO SCH ×2 (09:39→16:18)
[2017-09-28] MEDS: Bisacodyl 5mg EC Tab PO SCH (09:41)
[2017-09-28] MEDS: Enoxaparin 40 mg Syringe SC SCH (09:41)
--- NOTE | 2017-09-28 10:49 | CP.PCM.PN ---
Subjective - Date & Time of Evaluation Date of Evaluation: 09/28/17 Time of Evaluation: 09:30 - Subjective Subjective: Patient seen and examined at bedside comfortable. Pain is well controlled. Tolerating PT well. Denies CP/SOB/dizziness/N/V/D/fever. Objective - Vital Signs/Intake and Output Vital Signs (last 24 hours): Temp Pulse Resp BP Pulse Ox 98.2 F 85 20 119/68 92 L 09/28/17 08:40 09/28/17 09:40 09/28/17 08:40 09/28/17 09:40 09/28/17 08:40 - Medications Medications: Current Medications Acetaminophen (Tylenol 325mg Tab) 650 mg PO Q6 PRN PRN Reason: Pain, Mild (1-3) Acetylcysteine (Acetylcysteine 20%) 2 ml INH RBID PRN PRN Reason: Shortness of Breath Last Admin: 09/26/17 22:43 Dose: 2 ml Albuterol Sulfate (Albuterol 0.083% Inhal Kaila (2.5 Mg/3 Ml) Ud) 2.5 mg INH RQ6 PRN PRN Reason: Shortness of Breath Last Admin: 09/26/17 22:43 Dose: 2.5 mg Ascorbic Acid (Vitamin C 500 Mg Tab) 500 mg PO DAILY [facility] Last Admin: 09/28/17 09:40 Dose: 500 mg Bisacodyl (Dulcolax) 10 mg [place] DAILY PRN PRN Reason: Constipation Last Admin: 09/25/17 18:10 Dose: 10 mg Bisacodyl (Dulcolax) 5 mg PO DAILY [facility] Last Admin: 09/28/17 09:41 Dose: 5 mg Bismuth Subsalicylate (Pepto Bismol) 262 mg PO Q1 PRN PRN Reason: Heartburn Last Admin: 09/26/17 12:30 Dose: 262 mg Enoxaparin Sodium (Lovenox) 40 mg SC DAILY [facility] PRN Reason: Protocol Last Admin: 09/28/17 09:41 Dose: 40 mg Ferrous Sulfate (Feosol) 325 mg PO BID [facility] Last Admin: 09/28/17 09:38 Dose: 325 mg Hydrochlorothiazide (Microzide) 12.5 mg PO 1800 [facility] Last Admin: 09/27/17 18:33 Dose: 12.5 mg Lactulose (Enulose) 20 gm PO Q4H PRN PRN Reason: Constipation Last Admin: 09/26/17 22:28 Dose: 20 gm Losartan Potassium (Cozaar) 100 mg PO DAILY [facility] Last Admin: 09/28/17 09:40 Dose: 100 mg Multivitamins/Minerals (Therapeutic-M Tab) 1 tab PO DAILY [facility] Last Admin: 09/28/17 09:38 Dose: 1 tab Ondansetron HCl (Zofran Tab) 4 mg PO Q6 PRN PRN Reason: Nausea/Vomiting Last Admin: 09/22/17 15:53 Dose: 4 mg Pantoprazole Sodium (Protonix Ec Tab) 40 mg PO BID [facility] Last Admin: 09/28/17 09:39 Dose: 40 mg Sucralfate (Carafate Oral Susp) 1 gm PO TID [facility] Last Admin: 09/28/17 08:04 Dose: 1 gm Tramadol HCl (Ultram) 50 mg PO Q6 PRN PRN Reason: Pain, moderate (4-7) Last Admin: 09/28/17 05:24 Dose: 50 mg - Labs Labs: 09/27/17 06:05 18 06:21 - Extremities Exam Additional comments: R knee: mild swelling Dressings CDI, wound CDI with renae ROM 0-90 deg sensation intact SP/DP/TN motor intact EHL/FHL/TA/G pedal pulses intact comps soft NT Assessment and Plan (1) Status post total right knee replacement Assessment & Plan: POD#21 s/p R TKA, b/l PE. -dressings changed this AM -PT/OT WBAT -CPM, knee imm as per order -orthopedically stable -d/w Dr. Ricardo in agreement Status: Acute
[2017-09-29] MEDS: Sucralfate 1 gm/10 ml Oral Susp UD PO SCH ×3 (06:08→17:29)
[2017-09-29] MEDS: Pantoprazole 40 mg EC Tab PO SCH ×2 (09:29→17:29)
[2017-09-29] MEDS: Enoxaparin 40 mg Syringe SC SCH (09:29)
[2017-09-29] MEDS: Multivitamin With Minerals Tab PO SCH (09:29)
[2017-09-29] MEDS: Bisacodyl 5mg EC Tab PO SCH ×2 (09:30→09:34)
[2017-09-29 16:18] VITALS: RESP 20
[2017-09-29 19:45] VITALS: PULSE 78
--- NOTE | 2017-09-30 00:33 | PN ---
DATE: 09/29/2017 SUBJECTIVE: The patient is seen today, 09/29/2017. She is not in any cardiopulmonary distress, and the patient feels pressure regarding her pressure like chest symptoms. PHYSICAL EXAMINATION: VITAL SIGNS: Blood pressure 122/66, temperature 98.1, respiratory rate 20, and pulse 76. HEENT: Pupils equal and reactive to light. Normal-appearing mucosa of the conjunctivae, oropharynx and nasal membrane mucosa. NECK: Supple. No JVD. No carotid bruit. No lymph node. No thyromegaly. CHEST AND LUNGS: Bilateral symmetrical expansion. Good air exchange. No rales. No rhonchi. CARDIOVASCULAR SYSTEM: PMI not localized. S1 and S2. No additional sounds. ABDOMEN: Normoactive bowel sounds. No tenderness. No organomegaly. No masses. EXTREMITIES: No cyanosis. No clubbing. No edema. ORDNANCE HANDLER: Alert, awake, oriented x2. No neurological deficit could be appreciated. ASSESSMENT: 1. Status post right total knee replacement. 2. Hypertension. 3. Pulmonary embolism, status post inferior vena cava filter placement. 4. Gastroesophageal reflux disease. 5. History of bronchial asthma. PLAN: Continue current medications and follow recommendations of physical therapist regarding discharge planning. Familia Strong MD
[2017-09-30] MEDS: Sucralfate 1 gm/10 ml Oral Susp UD PO SCH ×2 (07:11→11:30)
[2017-09-30 08:50] VITALS: BP 127/69; TEMP 98.1; O2SAT 99
--- NOTE | 2017-09-30 09:21 | CP.PCM.PN ---
Subjective - Date & Time of Evaluation Date of Evaluation: 09/30/17 Time of Evaluation: :19 - Subjective Subjective: Pt c/o a little more pain in her knee today. She says she did a lot in PT yesterday. Denies CP/SOB/dizziness/numbness/tingling. Objective - Vital Signs/Intake and Output Vital Signs (last 24 hours): Temp Pulse Resp BP Pulse Ox 98.1 F 78 20 127/69 99 09/30/17 08:49 09/30/17 08:49 09/30/17 08:49 09/30/17 08:49 09/30/17 08:49 - Medications Medications: Current Medications Acetaminophen (Tylenol 325mg Tab) 650 mg PO Q6 PRN PRN Reason: Pain, Mild (1-3) Acetylcysteine (Acetylcysteine 20%) 2 ml INH RBID PRN PRN Reason: Shortness of Breath Last Admin: 09/26/17 22:43 Dose: 2 ml Ascorbic Acid (Vitamin C 500 Mg Tab) 500 mg PO DAILY [facility] Last Admin: 09/29/17 09:29 Dose: 500 mg Bisacodyl (Dulcolax) 10 mg [place] DAILY PRN PRN Reason: Constipation Last Admin: 09/29/17 15:22 Dose: 10 mg Bisacodyl (Dulcolax) 5 mg PO DAILY [facility] Last Admin: 09/29/17 09:34 Dose: Not Given Bismuth Subsalicylate (Pepto Bismol) 262 mg PO Q1 PRN PRN Reason: Heartburn Last Admin: 09/26/17 12:30 Dose: 262 mg Ferrous Sulfate (Feosol) 325 mg PO BID [facility] Last Admin: 09/29/17 17:29 Dose: 325 mg Hydrochlorothiazide (Microzide) 12.5 mg PO 1800 [facility] Last Admin: 09/29/17 17:29 Dose: 12.5 mg Lactulose (Enulose) 20 gm PO Q4H PRN PRN Reason: Constipation Last Admin: 09/29/17 09:31 Dose: 20 gm Losartan Potassium (Cozaar) 100 mg PO DAILY [facility] Last Admin: 09/29/17 09:29 Dose: 100 mg Multivitamins/Minerals (Therapeutic-M Tab) 1 tab PO DAILY [facility] Last Admin: 09/29/17 09:29 Dose: 1 tab Ondansetron HCl (Zofran Tab) 4 mg PO Q6 PRN PRN Reason: Nausea/Vomiting Last Admin: 09/22/17 15:53 Dose: 4 mg Pantoprazole Sodium (Protonix Ec Tab) 40 mg PO BID [facility] Last Admin: 09/29/17 17:29 Dose: 40 mg Sucralfate (Carafate Oral Susp) 1 gm PO TID@0700,1100,1630 [facility] Last Admin: 09/30/17 07:11 Dose: 1 gm - Labs Labs: 09/27/17 06:05 09/23/17 06:21 - Extremities Exam Additional comments: RLE: knee mildly swollen, warm, no erythema, incision dry, intact, +ROM ankle/ toes, sensation intaict +DP/PT Pulses, ice to knee Assessment and Plan (1) Primary osteoarthritis of right knee Assessment & Plan: 4 weeks s/p right TKR PE s/p IVCF ortho stable for d/c home f/u 7-[address] Ricardo cont PT walker ambulation anticoagulation as per Dr. Strong d/w Dr. Ricardo, agrees with abvoe Status: Acute
[2017-09-30] MEDS: Bisacodyl 5mg EC Tab PO SCH (09:42)
[2017-09-30] MEDS: Pantoprazole 40 mg EC Tab PO SCH (09:42)
[2017-09-30] MEDS: Multivitamin With Minerals Tab PO SCH (09:42)
[2017-09-30] MEDS ORDERED: Enoxaparin 40 mg Syringe SC SCH (11:15)
--- NOTE | 2017-09-30 14:10 | CP.PCM.PN ---
Subjective - Date & Time of Evaluation Date of Evaluation: 09/30/17 Time of Evaluation: 14:09 - Subjective Subjective: Patient seen, set for d/c home today pain is controlled she is very happy with the care and is looking forward to continued therapies Objective - Vital Signs/Intake and Output Vital Signs (last 24 hours): Temp Pulse Resp BP Pulse Ox 98.1 F 78 20 127/69 99 09/30/17 08:49 09/30/17 09:42 09/30/17 08:49 09/30/17 09:42 09/30/17 08:49 - Medications Medications: Current Medications Acetaminophen (Tylenol 325mg Tab) 650 mg PO Q6 PRN PRN Reason: Pain, Mild (1-3) Acetylcysteine (Acetylcysteine 20%) 2 ml INH RBID PRN PRN Reason: Shortness of Breath Last Admin: 09/26/17 22:43 Dose: 2 ml Ascorbic Acid (Vitamin C 500 Mg Tab) 500 mg PO DAILY [facility] Last Admin: 09/30/17 09:42 Dose: 500 mg Bisacodyl (Dulcolax) 10 mg LA DAILY PRN PRN Reason: Constipation Last Admin: 09/29/17 15:22 Dose: 10 mg Bisacodyl (Dulcolax) 5 mg PO DAILY [facility] Last Admin: 09/30/17 09:42 Dose: 5 mg Bismuth Subsalicylate (Pepto Bismol) 262 mg PO Q1 PRN PRN Reason: Heartburn Last Admin: 09/26/17 12:30 Dose: 262 mg Enoxaparin Sodium (Lovenox) 40 mg SC DAILY [facility] PRN Reason: Protocol Last Admin: 09/30/17 12:23 Dose: 40 mg Ferrous Sulfate (Feosol) 325 mg PO BID [facility] Last Admin: 09/30/17 09:42 Dose: 325 mg Hydrochlorothiazide (Microzide) 12.5 mg PO 1800 [facility] Last Admin: 09/29/17 17:29 Dose: 12.5 mg Lactulose (Enulose) 20 gm PO Q4H PRN PRN Reason: Constipation Last Admin: 09/29/17 09:31 Dose: 20 gm Losartan Potassium (Cozaar) 100 mg PO DAILY [facility] Last Admin: 09/30/17 09:42 Dose: 100 mg Multivitamins/Minerals (Therapeutic-M Tab) 1 tab PO DAILY [facility] Last Admin: 09/30/17 09:42 Dose: 1 tab Ondansetron HCl (Zofran Tab) 4 mg PO Q6 PRN PRN Reason: Nausea/Vomiting Last Admin: 09/22/17 15:53 Dose: 4 mg Pantoprazole Sodium (Protonix Ec Tab) 40 mg PO BID [facility] Last Admin: 09/30/17 09:42 Dose: 40 mg Sucralfate (Carafate Oral Susp) 1 gm PO TID@0700,1100,1630 [facility] Last Admin: 09/30/17 11:30 Dose: 1 gm - Labs Labs: 09/27/17 06:05 09/23/17 06:21
== END 2017-09-30 15:15 | disposition home or self-care (01) | DRG 560 ==
LOC: H.TCU 17:03
PROVIDERS: ADMIT Internal Medicine; ATTEND Internal Medicine
PROC: F07Z9FZ Gait Training/Functional Ambulation Treatment using Assistive, Adaptive, Supportive or Protective Equipment (ICD-10-PCS; principal; 2017-09-21)
PROC: F08Z4FZ Home Management Treatment using Assistive, Adaptive, Supportive or Protective Equipment (ICD-10-PCS; 2017-09-21)
PROC: F07L6FZ Therapeutic Exercise Treatment of Musculoskeletal System - Lower Back / Lower Extremity using Assistive, Adaptive, Supportive or Protective Equipment (ICD-10-PCS; 2017-09-21)
DX: Z47.1 Aftercare following joint replacement surgery (principal); D62 Acute posthemorrhagic anemia; Z96.651 Presence of right artificial knee joint; M17.11 Unilateral primary osteoarthritis, right knee; Z86.711 Personal history of pulmonary embolism; E11.9 Type 2 diabetes mellitus without complications; I10 Essential (primary) hypertension; K21.9 Gastro-esophageal reflux disease without esophagitis; G47.30 Sleep apnea, unspecified; K59.00 Constipation, unspecified; J45.909 Unspecified asthma, uncomplicated; Z98.84 Bariatric surgery status; Z87.01 Personal history of pneumonia (recurrent); Z91.010 Allergy to peanuts